=== PATIENT | female | born 1985 | race Caucasian/White ===

== ENCOUNTER 2020-02-29 16:23 | Outpatient (REF) | payer OTHER, SELFPAY | END 2020-02-29 16:24 | disposition home or self-care (01) | LOC: HO.LAB 16:23 | PROVIDERS: PCP Internal Medicine; Visit Provider Internal Medicine | DX: Z20.828 Contact with and (suspected) exposure to other viral communicable diseases (principal) | CPT/HCPCS: U0003 ==

== ENCOUNTER 2020-06-29 09:13 | Outpatient (REF) | payer OTHER, SELFPAY | END 2020-06-29 09:14 | disposition home or self-care (01) | LOC: HO.LAB 09:13 | PROVIDERS: Visit Provider Internal Medicine | DX: Z20.822 Contact with and (suspected) exposure to COVID-19 (principal) | CPT/HCPCS: 36415; C9803; U0003; U0005 ==

== ENCOUNTER 2020-07-05 08:41 | Outpatient (REF) | payer OTHER, SELFPAY | END 2020-07-05 08:42 | disposition home or self-care (01) | LOC: HO.LAB 08:41 | PROVIDERS: Visit Provider Internal Medicine | DX: Z20.822 Contact with and (suspected) exposure to COVID-19 (principal) | CPT/HCPCS: 36415; C9803; U0003; U0005 ==

== ENCOUNTER 2021-05-21 01:11 | Inpatient (IN) | payer OTHER, SELFPAY ==
[2021-05-21] VITALS (17 sets, daily range): BP systolic 109–206; BP diastolic 48–99; PULSE 75–133; RESP 13–20; TEMP 36.3–37.1; O2SAT 94–99; BMI 52.1
--- NOTE | 2021-05-21 | ECG_ITS ---
Test Reason : PAIN Blood Pressure : / mmHG Vent. Rate : 122 BPM Atrial Rate : 122 BPM P-R Int : 144 ms QRS Dur : 090 ms QT Int : 324 ms P-R-T Axes : 025 -12 053 degrees QTc Int : 461 ms Sinus tachycardia Otherwise normal ECG When compared to the previous EKG of Vent. rate has increased Referred By: Generic ED Physician Electronically Signed By:OSMAR GOMES MD
--- NOTE | ~2021-05-21 | XR_ITS ---
EXAMINATION: XR CHEST CLINICAL INFORMATION: Chest pain COMPARISON: 09/14/2012 TECHNIQUE: 2 views of the chest were obtained. FINDINGS: Cardiac leads overlie the chest. The lungs are well expanded. There is no focal consolidation, edema, or effusion. No pneumothorax. The cardiomediastinal silhouette is within normal limits. No acute osseous abnormality. XR/XR chest 2V IMPRESSION: Clear lungs.
--- NOTE | ~2021-05-21 | CT_ITS ---
EXAMINATION: CT ABDOMEN AND PELVIS WITH CONTRAST CLINICAL INFORMATION: Right upper quadrant pain. COMPARISON: None TECHNIQUE: Multidetector volumetric images were obtained from the superior aspect of the liver through the pubic symphysis following administration 85 mL of Omnipaque 350 intravenous contrast. Sagittal and coronal reformatted images were obtained on the technologist's workstation. Oral contrast: No This CT examination was performed using dose optimization techniques as appropriate, variously including the following: *Automated exposure control *Adjustment of mA and/or kV according to patient size (this includes techniques or standardized protocols for targeted exams where dose is matched to indication/reason for exam; i.e. extremities or head) *Use of iterative reconstruction technique DLP: 1288 mGy-cm FINDINGS: LUNG BASES: The visualized lung bases are unremarkable. LIVER, GALLBLADDER, AND BILIARY TREE: The liver is normal in size and shape with decreased attenuation. No focal hepatic lesion or biliary ductal dilatation is present. Mildly distended gallbladder with multiple stones inside the gallbladder lumen. There is gallbladder wall thickening and pericholecystic fluid noted. Stone in the region of the gallbladder neck. This is seen on series 3 image 28. PANCREAS: Unremarkable. SPLEEN: Unremarkable. ADRENAL GLANDS: Unremarkable. KIDNEYS AND URETERS: The kidneys are normal in size, shape, and attenuation. No hydronephrosis, hydroureter, or calculi seen. No perinephric stranding. BLADDER: Unremarkable. GASTROINTESTINAL TRACT: The stomach is unremarkable. Normal caliber small bowel. No obstruction. Normal appendix. No colonic wall thickening or inflammatory change. No free air or free fluid. ABDOMINAL WALL: No significant hernia is appreciated. LYMPH NODES: Normal. VASCULAR: Unremarkable. PELVIC VISCERA: The uterus and adnexa are unremarkable. OSSEOUS STRUCTURES: No acute or suspicious osseous abnormality. Mild degenerative change at L5-S1. CT/CT abdomen pelvis w con IMPRESSION: Cholelithiasis. Gallbladder wall thickening with inflammatory changes, suggestive of acute cholecystitis. Hepatic steatosis. Fleischner guidelines were followed.
[2021-05-21 01:35] LABS: Appearance Urine CLEAR; Color Urine STRAW; Glucose Urine UA NEG (NEG); Leukocyte Esterase Urine 1+ (NEG); Nitrite Urine NEG (NEG); PH 6.5 (5.0-8.0); UACC Culture Trigger YES; UPreg QC Valid YES; Urine Blood 1+ (NEG); Urine Ketones NEG (NEG); Urine Pregnancy NEGATIVE (NEGATIVE); Urine Protein NEG (NEG-TRACE)
[2021-05-21 01:40] LABS: Bacteria Urine 1+ /LPF; Squamous Epithelial Cell Urine 2+ /LPF
[2021-05-21 01:49] LABS: COVID-19 Test Negative (Negative); IDNOW Serial# 9DD0AD1C
[2021-05-21 01:49] LABS: MANUAL DIFF FLAG NO
[2021-05-21 01:50] LABS: Basophils Absolute Auto 0.1 X10*3/uL (0.0-0.2); Basophils Percent Auto 0.6 % (0-2); Eosinophils Absolute Auto 0.2 X10*3/uL (0.0-0.4); Eosinophils Percent Auto 1.6 % (0-4); Hematocrit 40.8 % (37.0-47.0); Hemoglobin 13.4 g/dl (12.0-16.0); Imm Gran Abs Auto 0.04 X10*3/uL (0.00-0.03); Imm Gran Pct Auto 0.3 % (0.0-0.4); Lymphocytes Absolute Auto 4.7 X10*3/uL (1.2-4.9); Lymphocytes Percent Auto 35.7 % (20-40); Mean Corpuscular HGB Conc 32.8 g/dl (31.0-35.0); Mean Corpuscular Hemoglobin 27.7 pg (27.0-33.0); Mean Corpuscular Volume 84.5 fL (80.0-98.0); Mean Platelet Volume 8.6 fL (9.4-12.3); Monocytes Absolute Auto 0.9 X10*3/uL (0.1-1.2); Neutrophils Absolute Auto 7.2 x10*3/uL (2.0-8.3); Neutrophils Percent Auto 54.8 % (45-73); Platelet Count 351 X10*3/uL (160-400); Red Blood Count 4.83 X10*6/uL (4.20-5.50); Red Cell Distribution Width 14.1 % (11.0-16.0); White Blood Count 13.1 X10*3/uL (4.8-10.8)
--- NOTE | 2021-05-21 02:03 | ED_ITS ---
HPI - General Adult General Chief complaint: Abdominal Pain Stated complaint: pain in ribs Time Seen by Provider: 05/21/21 01:17 Source: patient Mode of arrival: ambulatory History of Present Illness HPI narrative: 35-year-old female with history hypertension states that approximately 2230 last night she had a feeling of ?trapped air? located just below her right ribs but was able to go to sleep but then she awoke with significant epigastric pain and reports that the pain radiates laterally into her upper back. Patient denies any fever, chills, nausea, vomiting, diarrhea and has received COVID-19 vaccine. Related Data Home Medications Medication Instructions Recorded Confirmed acetaminophen 500 mg tablet 1,000 mg PO QID PRN 02/09/21 02/09/21 amlodipine 2.5 mg tablet 2.5 mg PO DAILY 02/09/21 02/09/21 hydroxyzine HCl 10 mg tablet 10 mg PO BEDTIME PRN 02/09/21 02/09/21 Previous Rx's Medication Instructions Recorded amoxicillin 875 mg-potassium 1 tab PO BID 5 Days #10 tab 02/09/21 clavulanate 125 mg tablet (Augmentin) Allergies Allergy/AdvReac Type Severity Reaction Status Date / Time No Known Allergies Allergy Verified 05/21/21 01:19 Review of Systems Review of Systems: Pertinent positives and negatives as stated in HPI 10 point review of systems is otherwise negative. PMFSH Past Medical History Source: nursing notes reviewed Medical History Hypertension Social History Social History Advance Directives: No Patient : No Physical Exam Vital Signs: Vital Signs: Last Vital Signs Temp 98.0 F 05/21/21 01:14 Pulse 110 H 05/21/21 02:49 Resp 18 05/21/21 02:49 BP 180/99 H 05/21/21 02:49 Pulse Ox 99 05/21/21 02:49 BMI result Body Mass Index 52.1 VITAL SIGNS: Reviewed. GENERAL: Obesity, Well developed, well nourished, in no acute distress. HEAD: Normocephalic/atraumatic EYES: PERRLA, EOMI OROPHARYNX: no oral lesions noted, posterior pharynx clear LUNGS: Normal breath sounds. No adventitious sounds or accessory muscle use. SpO2<99> CARDIOVASCULAR: Regular rate and rhythm without noted murmurs. ABDOMEN: Soft, tenderness in right upper quadrant without rebound, Granado's positive, also tenderness on palpation of epigastric, non-distended with bowel sounds. NEUROLOGIC: Alert and oriented x 4. Strength and sensation to light touch were grossly intact x 4. ED Bedside Ultrasound of RUQ +Gall stones Wall-5mm, trace pericholecystic fluid CBD: 3mm Granado's positive Course Course Course Narrative: 35-year-old female with history and clinical presentation sugg estive of cholecystitis/choledocholithiasis/pancreatitis after review of all investigations. In addition, patient is noted to have a UTI. 0330: Suspect infection Review of all investigations with findings suggestive of acute cholecystitis. Patient received antibiotics in this case was discussed with general surgery who accepts admission. Medical Decision Making Lab Data Result diagrams: 05/21/21 01:45 05/21/21 01:45 Labs: Lab Results 05/21/21 05/21/21 05/21/21 Range/Units 01:28 01:28 01:28 WBC (4.8-10.8) X10*3/uL RBC (4.20-5.50) X10*6/uL Hgb (12.0-16.0) g/dl Hct (37.0-47.0) % MCV (80.0-98.0) fL MCH (27.0-33.0) pg MCHC (31.0-35.0) g/dl RDW (11.0-16.0) % Plt Count (160-400) X10*3/uL MPV (9.4-12.3) fL Immature Gran % (Auto) (0.0-0.4) % Neut % (Auto) (45-73) % Lymph % (Auto) (20-40) % Mcdonough % (Auto) (2-11) % Eos % (Auto) (0-4) % Baso % (Auto) (0-2) % Lymph # (Auto) (1.2-4.9) X10*3/uL [place]cd[place]ough # (Auto) (0.1-1.2) X10*3/uL Eos # (Auto) (0.0-0.4) X10*3/uL Baso # (Auto) (0.0-0.2) X10*3/uL Abs Immat Gran (auto) (0.00-0.03) X10*3/uL Absolute Neuts (auto) (2.0-8.3) x10*3/uL Absolute Nucleated RBC (0.0-0.012) X10*3/uL Nucleated RBC % (auto) (0.0-0.2) /100WBC Sodium (135-145) mmol/L Potassium (3.3-5.1) mmol/L Chloride (96-108) mmol/L Carbon Dioxide (22-29) mmol/L Anion Gap (12-20) BUN (9-16) mg/dL Creatinine (0.5-1.4) mg/dL Estim Creat Clear Calc Estimated GFR Random Glucose (60-115) mg/dL Calcium (8.4-10.2) mg/dL Total Bilirubin (0.0-1.0) mg/dL AST (5-31) U/L ALT (0-31) U/L Alkaline Phosphatase (39-117) U/L Troponin I High Sens (<3.5-17.0) ng/L Total Protein (6.5-8.0) g/dL Albumin (3.5-5.0) g/dL Lipase (8-78) U/L Urine Color STRAW Urine Appearance CLEAR Urine pH 6.5 (5.0-8.0) Ur Specific [place] 1.010 (1.005-1.025) Urine Protein NEG (NEG-TRACE) MG/DL Urine Glucose (UA) NEG (NEG) MG/DL Urine Ketones NEG (NEG) MG/DL Urine Blood 1+ H (NEG) Urine Nitrite NEG (NEG) Ur Leukocyte Esterase 1+ H (NEG) Urine RBC 1-4 (0) /HPF Urine WBC 10-14 H (0-4) /HPF Ur Squamous Epith Cells 2+ /LPF Urine Bacteria 1+ /LPF Urine Test NEGATIVE (NEGATIVE) COVID-19 (XIOMY) Negative (Negative) COVID-19 Clin Com See Note 05/21/21 05/21/21 05/21/21 Range/Units 01:45 01:45 01:45 WBC 13.1 H (4.8-10.8) X10*3/uL RBC 4.83 (4.20-5.50) X10*6/uL Hgb 13.4 (12.0-16.0) g/dl Hct 40.8 (37.0-47.0) % MCV 84.5 (80.0-98.0) fL MCH 27.7 (27.0-33.0) pg MCHC 32.8 (31.0-35.0) g/dl RDW 14.1 (11.0-16.0) % Plt Count 351 (160-400) X10*3/uL MPV 8.6 L (9.4-12.3) fL Immature Gran % (Auto) 0.3 (0.0-0.4) % Neut % (Auto) 54.8 (45-73) % Lymph % (Auto) 35.7 (20-40) % Mcd[place]ough % (Auto) 7.0 (2-11) % Eos % (Auto) 1.6 (0-4) % Baso % (Auto) 0.6 (0-2) % Lymph # (Auto) 4.7 (1.2-4.9) X10*3/uL [place] # (Auto) 0.9 (0.1-1.2) X10*3/uL Eos # (Auto) 0.2 (0.0-0.4) X10*3/uL Baso # (Auto) 0.1 (0.0-0.2) X10*3/uL Abs Immat Gran (auto) 0.04 H (0.00-0.03) X10*3/uL Absolute Neuts (auto) 7.2 (2.0-8.3) x10*3/uL Absolute Nucleated RBC 0.000 (0.0-0.012) X10*3/uL Nucleated RBC % (auto) 0.0 (0.0-0.2) /100WBC Sodium 139 (135-145) mmol/L Potassium 3.7 (3.3-5.1) mmol/L Chloride 105 (96-108) mmol/L Carbon Dioxide 24 (22-29) mmol/L Anion Gap 14 (12-20) BUN 12 (9-16) mg/dL Creatinine 0.81 (0.5-1.4) mg/dL Estim Creat Clear Calc 126.3 Estimated GFR > 60 Random Glucose 146 H (60-115) mg/dL Calcium 9.5 (8.4-10.2) mg/dL Total Bilirubin 0.7 (0.0-1.0) mg/dL AST 19 (5-31) U/L ALT 28 (0-31) U/L Alkaline Phosphatase 132 H (39-117) U/L Troponin I High Sens < 3.5 (<3.5-17.0) ng/L Total Protein 7.3 (6.5-8.0) g/dL Albumin 4.0 (3.5-5.0) g/dL Lipase 12 (8-78) U/L Urine Color Urine Appearance Urine pH (5.0-8.0) Ur Specific [place] (1.005-1.025) Urine Protein (NEG-TRACE) MG/DL Urine Glucose (UA) (NEG) MG/DL Urine Ketones (NEG) MG/DL Urine Blood (NEG) Urine Nitrite (NEG) Ur Leukocyte Esterase (NEG) Urine RBC (0) /HPF Urine WBC (0-4) /HPF Ur Squamous Epith Cells /LPF Urine Bacteria /LPF Urine Test (NEGATIVE) COVID-19 (XIOMY) (Negative) COVID-19 Clin Com ECG Data Attestation: I personally reviewed and interpreted this ECG as follows: Prior ECG tracings: not available for review Interpretation: Sinus tachycardia, HR-122, no STEMI, OR/QRS/QTC are within nor mal limits. Discharge Plan Discharge Clinical Impression: Acute cholecystitis, Hypertension Patient Disposition: Admitted As Inpatient Prescriptions: No Action acetaminophen 500 mg tablet 1,000 mg PO QID PRNRF: 0 amlodipine 2.5 mg tablet 2.5 mg PO DAILY RF: 0 hydroxyzine HCl 10 mg tablet 10 mg PO BEDTIME PRNRF: 0 amoxicillin-pot clavulanate [Augmentin] 875-125 mg tablet 1 tab PO BID 5 Days Qty: 10 RF: 0
[2021-05-21 02:09] LABS: Troponin-I High Sensitivity < 3.5 ng/L (<3.5-17.0)
[2021-05-21 02:11] LABS: Alanine Aminotransferase 28 U/L (0-31); Alkaline Phosphatase 132 U/L (39-117); Anion Gap 14 (12-20); Aspartate Amino Transferase 19 U/L (5-31); Bilirubin Total 0.7 mg/dL (0.0-1.0); Blood Urea Nitrogen 12 mg/dL (9-16); Calcium 9.5 mg/dL (8.4-10.2); Carbon Dioxide 24 mmol/L (22-29); Chloride 105 mmol/L (96-108); Creatinine Clr Calc Pharmacy 126.3; Estimated Glomerular Filt Rate > 60; Glucose Random 146 mg/dL (60-115); Potassium 3.7 mmol/L (3.3-5.1); Sodium 139 mmol/L (135-145); Total Protein 7.3 g/dL (6.5-8.0)
[2021-05-21 02:18] LABS: Lipase 12 U/L (8-78)
[2021-05-21] MEDS: Acetaminophen 325 MG TABLET 975 MG PO (03:16)
[2021-05-21] MEDS: amLODIPine Besylate 5 MG TABLET PO (03:23)
[2021-05-21] MEDS: Ketorolac Tromethamine 30 MG/ML VIAL 15 MG IVPUSH (03:23)
[2021-05-21] MEDS: Piperacillin Sodium/Tazobactam 3.375 GM in 0.9 % Sodium Chloride 50 ML IV ×2 (04:55→12:18)
[2021-05-21] MEDS: HYDROmorphone HCl 0.5 MG/0.5 ML SYRINGE 0.25 MG IVPUSH (04:56)
--- NOTE | 2021-05-21 07:50 | PC.NURSE ---
took over care of this pt at 0700.
--- NOTE | 2021-05-21 08:54 | PHA.MEDREC ---
Pharmacy Consult ? Medication Reconciliation Pharmacy has completed the medication reconciliation. There are no remarkable issues for provider's attention. Ekaterina Oconnell, EugenioD
--- NOTE | 2021-05-21 10:11 | PM.HPGS ---
History of Present Illness History of Present Illness Date of Service: 05/21/21 <Alaina Ruiz PA-C - Last Filed: 05/21/21 10:22> 05/21/21 <Stanford Solo MD - Last Filed: 05/21/21 11:56> Chief complaint: cholecystitis <Alaina Ruiz PA-C - Last Filed: 05/21/21 10:22> Narrative: Davy Mcqueen is a 35 year old female who presented to the ED with complaints of RUQ abd pain. She reports last evening she developed discomfort in the RUQ that felt like trapped air under her ribs. She went to bed however the pain worsened and spread to the epigastric area. She found no alleviating factors. She took tums with no relief. She therefore decided to seek evaluation in the ED. She reports multiple prior episodes of pain that resolved on their own and were not as severe. These occasionally began following food ingestion. She denies nausea, vomiting, fevers or chills at home. Work up in the ED included a CT scan which showed mildly distended gallbladder with multiple stones inside the gallbladder lumen with wall thickening and pericholecystic fluid noted. She also had a leukocytosis of 13.1. LFTs nml. This morning, she feels better with decreased pain. <Alaina Ruiz PA-C - Last Filed: 05/21/21 10:22> Review of Systems Constitutional: Constitutional: Denies chills, Denies fever(s), Denies poor appetite and Denies weakness <Alaina Ruiz PA-C - Last Filed: 05/21/21 10:22> ENT: Denies dizziness <Alaina Ruiz PA-C - Last Filed: 05/21/21 10:22> Cardiovascular: Cardiovascular: Denies chest pain, Denies palpitations and Denies dyspnea <JAZZ Alan Last Filed: 05/21/21 10:22> Respiratory: Respiratory: Denies cough and Denies dyspnea <JAZZ Alan Last Filed: 05/21/21 10:22> Gastrointestinal: Gastrointestinal: Reports as per HPI <JAZZ Alan Last Filed: 05/21/21 10:22> Genitourinary: Genitourinary: Denies hematuria and Denies dysuria <Alaina Ruiz PA-C - Last Filed: 05/21/21 10:22> Integumentary/Breasts: Skin/Breast: Denies rash and Denies jaundice <Alaina Ruiz PA-C - Last Filed: 05/21/21 10:22> Neurologic: Denies dizziness and Denies weakness <Alaina Ruiz PA-C - Last Filed: 05/21/21 10:22> Endocrine: Endocrine: Denies palpitations <Alaina Ruiz PA-C - Last Filed: 05/21/21 10:22> COUNTS INCLUDE 234 BEDS AT THE [facility] Past Medical History Medical History: Medical History (Updated 05/21/21 @ 10:16 by Stanford Solo MD) Hypertension Morbid obesity <Alaina Ruiz PA-C - Last Filed: 05/21/21 10:22> Surgical History Surgical History: Surgical History (Updated 05/21/21 @ 10:17 by Alaina Ruiz PA-C) History of salpingectomy <Alaina Ruiz PA-C - Last Filed: 05/21/21 10:22> Social History Social History: Social History Advance Directives: No Patient : No <Alaina Ruiz PA-C - Last Filed: 05/21/21 10:22> Meds Allergies/Adverse reactions: Allergies Allergy/AdvReac Type Severity Reaction Status Date / Time No Known Allergies Allergy Verified 05/21/21 01:19 <Alaina Ruiz PA-C - Last Filed: 05/21/21 10:22> Active Medications: Current Medications Enoxaparin Sodium (Enoxaparin Sodium 40 Mg/0.4 Ml Syringe) 40 mg SUBCUT Q24H JOLLY Sodium Chloride () 1,000 mls @ 100 mls/hr IVCONT .Q10H JOLLY Piperacillin Sod/Tazobactam (Sod 3.375 gm/ Sodium Chloride) 50 mls @ 100 mls/hr IV Q6H JOLLY Morphine Sulfate (Morphine Sulfate 4 Mg/Ml Cartridge) 4 mg IVPUSH Q4H PRN; Protocol PRN Reason: Pain, Severe (Pain Scale 7-10) Ondansetron HCl (Ondansetron Hcl 4 Mg/2 Ml Vial) 4 mg IVPUSH Q8H PRN PRN Reason: Nausea and Vomiting Pharmacy Consult (Consult Rx Perform Med Rec) 1 each MISCELLANE ONCE PRN PRN Reason: Consult order Sodium Chloride (0.9 % Sodium Chloride Flush 3 Ml Syringe) 3 ml IVFLUSH QSHIFT [facility] <JAZZ Alan Last Filed: 05/21/21 10:22> Home medications: Home Medications Medication Instructions Recorded Confirmed Last Taken Type hydroxyzine HCl 10 mg tablet 10 mg PO BEDTIME PRN 02/09/21 05/21/21 Unknown History amlodipine 5 mg tablet 1 tab PO DAILY 05/21/21 05/21/21 05/20/21 History norethindrone (contraceptive) 0.35 1 tab PO DAILY 05/21/21 05/21/21 05/20/21 History mg tablet <JAZZ Alan Last Filed: 05/21/21 10:22> Physical Exam Vital Signs: Vital Signs: Last Vital Signs Temp 98.0 F 05/21/21 01:14 Pulse 85 05/21/21 06:59 Resp 13 05/21/21 06:59 BP 135/60 05/21/21 06:59 Pulse Ox 98 05/21/21 06:59 BMI result Body Mass Index 52.1 <JAZZ Alan Last Filed: 05/21/21 10:22> Const: General: comfortable, no acute distress and alert <JAZZ Alan Last Filed: 05/21/21 10:22> Orientation/consciousness: patient oriented x3 <JAZZ Alan Last Filed: 05/21/21 10:22> Eyes: Sclerae: sclerae normal <JAZZ Alan Last Filed: 05/21/21 10:22> Resp: Effort & Inspection: normal respiratory effort <JAZZ Alan Last Filed: 05/21/21 10:22> Cardio: Rate: regular rate <JAZZ Alan Last Filed: 05/21/21 10:22> GI: Inspection: No distended <Alainanery AnanddeauJAZZ Solomon Last Filed: 05/21/21 10:22> Palpation (GI): Soft to palpation, Tenderness to palpation present (GI) in the RUQ; Negative for Granado's sign negative, no guarding and not rigid <Alaina Ruiz PA-C Solomon Last Filed: 05/21/21 10:22> Percussion: Yes normal to percussion <Alaina JAZZ Ruiz Solomon Last Filed: 05/21/21 10:22> Skin: General skin exam: no rashes or lesions noted and no jaundice <Alaina Ruiz PA-C Solomon Last Filed: 05/21/21 10:22> Neuro: General: patient oriented x3 <Alaina Ruiz PA-C Solomon Last Filed: 05/21/21 10:22> Extrem: General: No no clubbing, cyanosis or edema <Alaina Ruiz PA-C Solomon Last Filed: 05/21/21 10:22> Results Results Labs: Short CBC 05/21/21 Range/Units 01:45 WBC 13.1 H (4.8-10.8) X10*3/uL Hgb 13.4 (12.0-16.0) g/dl Hct 40.8 (37.0-47.0) % Plt Count 351 (160-400) X10*3/uL BMP 05/21/21 01:45 Sodium 139 Potassium 3.7 Chloride 105 Carbon Dioxide 24 BUN 12 Creatinine 0.81 Calcium 9.5 Liver Function 05/21/21 Range/Units 01:45 Total Bilirubin 0.7 (0.0-1.0) mg/dL AST 19 (5-31) U/L ALT 28 (0-31) U/L Alkaline Phosphatase 132 H (39-117) U/L Albumin 4.0 (3.5-5.0) g/dL Urine 05/21/21 05/21/21 Range/Units 01:28 01:28 Urine Color STRAW Urine Appearance CLEAR Urine pH 6.5 (5.0-8.0) Ur Specific [place] 1.010 (1.005-1.025) Urine Protein NEG (NEG-TRACE) MG/DL Urine Glucose (UA) NEG (NEG) MG/DL Urine Test NEGATIVE (NEGATIVE) <Alaina Ruiz PA-C - Last Filed: 05/21/21 10:22> Assessment and Plan (1) Acute cholecystitis: Status: Acute <Alaina Ruiz PA-C - Last Filed: 05/21/21 10:22> She had an episode of pain on the right upper quadrant which she describes as severe last night. She is much better this morning. Her imaging study with her CAT scan has been reviewed and this suggest acute cholecystitis. I had a long discussion with her about the option of proceeding with laparoscopic cholecystectomy with possible open cholecystectomy. I did explain to her the risks including but not limited to bleeding, infection, injury to bowel, injury to the liver and the bile duct, cystic duct leak, bile leak, and stones, as well as the benefits and alternatives. In view of her severe pain last night, she says she wants to proceed with this surgery. I drained this as well to her through [employer] you over the phone at [phone] <Stanford Solo MD - Last Filed: 05/21/21 11:56> 35 year old female who presented with RUQ pain with RUQ tenderness, leukocytosis and imaging with gallstones, GB wall thickening and pericholecystic fluid. Clinical picture consistent with acute cholecystitis. Treatment options were discussed with her including observation and IV abx therapy versus proceeding with laparoscopic cholecystectomy possible open. Technique of the procedure, risks and benefits were discussed with the patient including bleeding, infection, injury to surrounding structures like liver, bile ducts, bowel, vasculature. She actually feels improved currently but wants to proceed with laparoscopic cholecystectomy in view of her previous episodes. She will be added onto the OR schedule for today. <Alaina Ruiz PA-C - Last Filed: 05/21/21 10:22> Quality Stroke Does the patient have a stroke diagnosis?: No <Alaina Ruiz PA-C - Last Filed: 05/21/21 10:22> VTE Prior VTE?: No <Alaina Ruiz PA-C - Last Filed: 05/21/21 10:22> VTE Risk Level:: Surgical - low <Alaina Ruiz PA-C - Last Filed: 05/21/21 10:22> VTE Device Contraindication: N/A - Device Ordered <Alaina Ruiz PA-C - Last Filed: 05/21/21 10:22> VTE Drug Contraindication: N/A - Med Ordered <Alaina Ruiz PA-C - Last Filed: 05/21/21 10:22> Procedures Date of Service Date of Service: 05/21/21 <Alaina Ruiz PA-C - Last Filed: 05/21/21 10:22>
--- NOTE | 2021-05-21 10:15 | P.HPGS_ITS ---
History of Present Illness History of Present Illness Date of Service: 05/21/21 Chief complaint: cholecystitis Narrative: Davy Mcqueen is a 35 year old female who came to the emergency room last night because of abdominal pain. She says that she had some mild pain on the right upper quadrant when she went to bed last night. However, she woke up at around midnight last night because of the severe pain. She then went to the emergency room. She says that she was nauseous although denies any vomiting. She says that she really did not have any similar episodes of pain in the past. She says that she feels she is in good health although is morbidly obese and has hypertension. She currently states that her pain has improved significantly. Review of Systems Constitutional: Constitutional: Denies chills and Denies fever(s) Cardiovascular: Cardiovascular: Denies chest pain, Denies dyspnea and Denies dyspnea on exertion Respiratory: Respiratory: Denies cough, Denies dyspnea and Denies dyspnea on exertion Gastrointestinal: Gastrointestinal: Denies hematochezia and Denies change in bowel habits Genitourinary: Genitourinary: Denies hematuria Musculoskeletal: Musculoskeletal: Denies back pain and Denies limited range of motion Neurologic: Denies focal weakness and Denies convulsions Psychiatric: Psychiatric: Denies depression and Denies mood swings PMF Past Medical History Medical History (Updated 05/21/21 @ 10:16 by Stanford Solo MD) Hypertension Morbid obesity Surgical History Surgical History (Updated 05/21/21 @ 10:17 by Alaina Ruiz PA-C) History of salpingectomy Social History Social History Advance Directives: No Patient : No Meds Allergies Allergy/AdvReac Type Severity Reaction Status Date / Time No Known Allergies Allergy Verified 05/21/21 01:19 Active Medications: Current Medications Enoxaparin Sodium (Enoxaparin Sodium 40 Mg/0.4 Ml Syringe) 40 mg SUBCUT Q24H JOLLY Sodium Chloride () 1,000 mls @ 100 mls/hr IVCONT .Q10H JOLLY Piperacillin Sod/Tazobactam (Sod 3.375 gm/ Sodium Chloride) 50 mls @ 100 mls/hr IV Q6H JOLLY Morphine Sulfate (Morphine Sulfate 4 Mg/Ml Cartridge) 4 mg IVPUSH Q4H PRN; Protocol PRN Reason: Pain, Severe (Pain Scale 7-10) Ondansetron HCl (Ondansetron Hcl 4 Mg/2 Ml Vial) 4 mg IVPUSH Q8H PRN PRN Reason: Nausea and Vomiting Pharmacy Consult (Consult Rx Perform Med Rec) 1 each MISCELLANE ONCE PRN PRN Reason: Consult order Sodium Chloride (0.9 % Sodium Chloride Flush 3 Ml Syringe) [facility] Medication Instructions Recorded Confirmed Last Taken Type hydroxyzine HCl 10 mg tablet 10 mg PO BEDTIME PRN 02/09/21 05/21/21 Unknown H istory amlodipine 5 mg tablet 1 tab PO DAILY 05/21/21 05/21/21 05/20/21 History norethindrone (contraceptive) 0.35 1 tab PO DAILY 05/21/21 05/21/21 05/20/21 History mg tablet Physical Exam Vital Signs: Vital Signs: Last Vital Signs Temp 98.0 F 05/21/21 01:14 Pulse 85 05/21/21 06:59 Resp 13 05/21/21 06:59 BP 135/60 05/21/21 06:59 Pulse Ox 98 05/21/21 06:59 BMI result Body Mass Index 52.1 Const: Other: Appears morbidly obese Results Results Labs: Short CBC 05/21/21 Range/Units 01:45 WBC 13.1 H (4.8-10.8) X10*3/uL Hgb 13.4 (12.0-16.0) g/dl Hct 40.8 (37.0-47.0) % Plt Count 351 (160-400) X10*3/uL BMP 05/21/21 01:45 Sodium 139 Potassium 3.7 Chloride 105 Carbon Dioxide 24 BUN 12 Creatinine 0.81 Calcium 9.5 Liver Function 05/21/21 Range/Units 01:45 Total Bilirubin 0.7 (0.0-1.0) mg/dL AST 19 (5-31) U/L ALT 28 (0-31) U/L Alkaline Phosphatase 132 H (39-117) U/L Albumin 4.0 (3.5-5.0) g/dL Urine 05/21/21 05/21/21 Range/Units 01:28 01:28 Urine Color STRAW Urine Appearance CLEAR Urine pH 6.5 (5.0-8.0) Ur Specific [place] 1.010 (1.005-1.025) Urine Protein NEG (NEG-TRACE) MG/DL Urine Glucose (UA) NEG (NEG) MG/DL Urine Test NEGATIVE (NEGATIVE) Abdomen CT scan report/results: report reviewed and image reviewed CT scan - pelvis: report reviewed and image reviewed Quality VTE VTE Risk Level:: Surgical - low VTE Device Contraindication: N/A - Device Ordered VTE Drug Contraindication: N/A - Med Ordered
[2021-05-21] MEDS: Sodium Chloride 0.45 % 1,000 ML 100 ML IVCONT ×2 (10:51→17:18)
--- NOTE | 2021-05-21 11:47 | HO.ANESPROP2 ---
[facility] Active Problems Active Problems: All Active Problems (Updated 05/21/21 @ 10:16 by Stanford Solo MD) Morbid obesity (Acute) Left otitis media (Acute) Acute cholecystitis (Acute) Hypertension (Acute) Past Medical History Medical History Hypertension Morbid obesity Surgical History Surgical History History of salpingectomy History of Problems with Anesthesia: No Social History Social History Patient Tobacco Use Status: Never used Tobacco Use of substances other than those prescribed or required for medical reasons: No Are you DNR?: No Advance Directives: No Patient : No Meds Allergies Allergy/AdvReac Type Severity Reaction Status Date / Time No Known Allergies Allergy Verified 05/21/21 12:55 Active Medications: Current Medications Enoxaparin Sodium (Enoxaparin Sodium 40 Mg/0.4 Ml Syringe) 40 mg SUBCUT Q24H [facility] Last Admin: 05/21/21 10:51 Dose: Not Given Documented by: Sodium Chloride () 1,000 mls @ 100 mls/hr IVCONT .Q10H [facility] Last Admin: 05/21/21 10:51 Dose: 100 mls/hr Documented by: Piperacillin Sod/Tazobactam (Sod 3.375 gm/ Sodium Chloride) 50 mls @ 100 mls/hr IV Q6H JOLLY Morphine Sulfate (Morphine Sulfate 4 Mg/Ml Cartridge) 4 mg IVPUSH Q4H PRN; Protocol PRN Reason: Pain, Severe (Pain Scale 7-10) Ondansetron HCl (Ondansetron Hcl 4 Mg/2 Ml Vial) 4 mg IVPUSH Q8H PRN PRN Reason: Nausea and Vomiting Pharmacy Consult (Consult Rx Perform Med Rec) 1 each MISCELLANE ONCE PRN PRN Reason: Consult order Sodium Chloride (0.9 % Sodium Chloride Flush 3 Ml Syringe) 3 ml IVFLUSH QSHIFT [facility] Last Admin: 05/21/21 10:51 Dose: Not Given Documented by: Home Medications Medication Instructions Recorded Confirmed Last Taken Type hydroxyzine HCl 10 mg tablet 10 mg PO BEDTIME PRN 02/09/21 05/21/21 Unknown History amlodipine 5 mg tablet 1 tab PO DAILY 05/21/21 05/21/21 05/20/21 History norethindrone (contraceptive) 0.35 1 tab PO DAILY 05/21/21 05/21/21 05/20/21 History mg tablet Exam Exam Date and Time: May 21, 2021 1147 Height,Weight and Vital Signs: Height 5 ft 2 in Weight 129.274 kg Last Vital Signs Temp 97.8 F 05/21/21 10:30 Pulse 99 05/21/21 10:30 Resp 16 05/21/21 10:30 BP 143/76 H 05/21/21 10:30 Pulse Ox 97 05/21/21 10:30 Pertinent Lab Results Pertinent Lab Results: Laboratory Tests 05/21/21 05/21/21 05/21/21 01:28 01:28 01:28 WBC RBC Hgb Hct MCV MCH MCHC RDW Plt Count MPV Immature Gran % (Auto) Neut % (Auto) Lymph % (Auto) [place] % (Auto) Eos % (Auto) Baso % (Auto) Lymph # (Auto) [place] # (Auto) Eos # (Auto) Baso # (Auto) Abs Immat Gran (auto) Absolute Neuts (auto) Absolute Nucleated RBC Nucleated RBC % (auto) Sodium Potassium Chloride Carbon Dioxide Anion Gap BUN Creatinine Estim Creat Clear Calc Estimated GFR Random Glucose Calcium Total Bilirubin AST ALT Alkaline Phosphatase Troponin I High Sens Total Protein Albumin Lipase Urine Color STRAW Urine Appearance CLEAR Urine pH 6.5 Ur Specific [place] 1.010 Urine Protein NEG Urine Glucose (UA) NEG Urine Ketones NEG Urine Blood 1+ H Urine Nitrite NEG Ur Leukocyte Esterase 1+ H Urine RBC 1-4 Urine WBC 10-14 H Ur Squamous Epith Cells 2+ Urine Bacteria 1+ Urine Test NEGATIVE COVID-19 (XIOMY) Negative COVID-19 Clin Com See Note 05/21/21 05/21/21 05/21/21 01:45 01:45 01:45 WBC 13.1 H RBC 4.83 Hgb 13.4 Hct 40.8 MCV 84.5 MCH 27.7 MCHC 32.8 RDW 14.1 Plt Count 351 MPV 8.6 L Immature Gran % (Auto) 0.3 Neut % (Auto) 54.8 Lymph % (Auto) 35.7 [place] % (Auto) 7.0 Eos % (Auto) 1.6 Baso % (Auto) 0.6 Lymph # (Auto) 4.7 [place] # (Auto) 0.9 Eos # (Auto) 0.2 Baso # (Auto) 0.1 Abs Immat Gran (auto) 0.04 H Absolute Neuts (auto) 7.2 Absolute Nucleated RBC 0.000 Nucleated RBC % (auto) 0.0 Sodium 139 Potassium 3.7 Chloride 105 Carbon Dioxide 24 Anion Gap 14 BUN 12 Creatinine 0.81 Estim Creat Clear Calc 126.3 Estimated GFR > 60 Random Glucose 146 H Calcium 9.5 Total Bilirubin 0.7 AST 19 ALT 28 Alkaline Phosphatase 132 H Troponin I High Sens < 3.5 Total Protein 7.3 Albumin 4.0 Lipase 12 Urine Color Urine Appearance Urine pH Ur Specific [place] Urine Protein Urine Glucose (UA) Urine Ketones Urine Blood Urine Nitrite Ur Leukocyte Esterase Urine RBC Urine WBC Ur Squamous Epith Cells Urine Bacteria Urine Test COVID-19 (XIOMY) COVID-19 Clin Com Airway Mallampati Class: II TM Dist: >3cm Neck ROM: Full Loose/Missing/Broken Teeth: No Heart: RRR Lungs: CTA Assessment and Plan Assessment Anesthesia Assessment: Anesthesia Plan Discussed and Chart Reviewed Final Anesthetic Review History of Problems with Anesthesia: No NPO: Yes ASA Class: III Final Preanesthetic Review: Meds/Allgs Chart Reviewed, Consent Obtained/Reviewed and Anes Risks/Benef Reviewed Patient Risk: Intermediate Procedure Risk: Intermediate Anesthetic Plan Anesthetic Plan: GA Disposition: Standard PACU
--- NOTE | 2021-05-21 12:09 | PC.NURSE ---
Pt A&Ox3, no pain at this time, Aware of plan for OR at some point today. Oriented to the unit, Ambulatory with no assistance, call galvan within reach. WIll cotnineut o monitor.
--- NOTE | 2021-05-21 12:52 | PC.NURSE ---
Pt to OR at this time.
--- NOTE | 2021-05-21 14:31 | MHC.CM.PN ---
CM ATTEMPTED TO MEET WITH PT WHO WAS OFF UNIT CM TO REVISIT
--- NOTE | 2021-05-21 14:58 | P.OP_ITS ---
Operative Note Operative Note Date of Service: 05/21/21 Narrative: Preop diagnosis: Acute calculous cholecystitis Postop diagnosis: Acute calculous cholecystitis Procedure: Laparoscopic cholecystectomy Surgeon: Stanford Solo MD volleyball assistant coach: CORRY Ruiz The patient is a 35 year female who came to the emergency room last night because of right upper quadrant pain. Her CAT scan was consistent with acute cholecystitis. She was tender in right upper quadrant. She understood the technique of laparoscopic cholecystectomy as well as the risks, benefits, and alternatives and she wanted to proceed. She was brought to the operating room placed supine on table under general anesthesia via endotracheal tube. The abdomen is prepped draped usual sterile fashion. A surgical time-out was done. The patient received Cefotan 2 g IV preoperatively. I made a short supraumbilical incision using blade 15 and this carried down through the full-thickness of the skin and subcutaneous fat. We had to go through a very thick amount of subcutaneous fat in view of her morbid obesity until we were able to visualize the fascia. The fascia was grasped with Adelfo clamps. The fascia was incised. The peritoneum was entered. Through this incision a Moi port was introduced. Pneumoperitoneum was introduced to a pressure of 10 mm hg. From here on the rest of the procedure was done under vision with the laparoscope. With laparoscopic visualization, I proceeded to put a 5/12 mm port in the epigastric area below the subcostal margin. 5 mm port introduced a small incision below the subcostal margin along the anterior axillary line and the midclavicular line. Graspers were placed through these working port. The patient was placed in head-up and [id number] position. I was able to apply a grasper at the the gallbladder to retract this cephalad. By doing so, I wass able to view this and this appeared to be markedly distended congested and acutely inflamed. There was note of a lot omentum that was adherent to the anterior wall so I had to do a lot of gentle dissection with the [place] dissector to carefully strip the anterior wall of omentum. I was eventually able to expose the entire anterior wall. I was able to apply another grasper towards the pouch of the gallbladder and this was used to retract the gallbladder laterally. At this point therefore the gallbladder was being retracted in a cephalad and lateral fashion to put the approximate area of the cystic duct on stretch. Again there was still note of a lot of indurated fatty tissue surrounding the neck of the gallbladder so we had to do a lot of gentle dissection with the [place] dissector to free this up. Eventually, I was able to see the cystic duct. I was able to dissect this With this dissection, I achieved a critical view of the hepato cystic triangle. The cystic artery was also seen running alongside and posterior to the cystic duct. The lymph node of of [place] was also seen along the inferior edge of the gallbladder . There were no other tubular structures that could be seen in this area I continued to define the cystic duct until was able to clearly confirm its confluence with the neck of the gallbladder. I applied clips on the cystic duct with 2 clips being applied distally. The cystic duct was transected between clips with Endo scissors . I continued to dissect the cystic artery as well to define this. I applied clips on this and this was transected between clips with Endo scissors. I retracted the gallbladder away from the liver bed. I divided across the hilum with electrocautery spatula until I reached the interface of the gallbladder wall and the liver bed. I dissected the lymph node of [place] down to separate this from the gallbladder . By doing so was able to expose the entire interface of the gallbladder wall the liver bed. I used electrocautery spatula to cauterized the peritoneum. I then proceeded to do combination of blunt dissection with the tip of the spatula and electrocautery to gently separate the gallbladder wall from the liver bed. We proceeded with this manner of dissection throughout the liver bed all the way to the fundus. This was done until the entire gallbladder was completely from the liver bed. The gallbladder was retrieved through an endobag through the umbilical incision. I reinserted all ports and re-insufflated . I gently irrigated the area of dissection and suction out the irrigant fluid . I observed the subhepatic space. There was no evidence of any bleeding or any bile leak. I observed all 4 quadrants. There was no other evidence of any bowel pathology or any injury I reinspected the subhepatic space. Once hemostasis was ensured, proceeded to then desufflated the port sites. The ports were removed under vision with the laparoscope. The umbilical port was therefore removed last. The fascia of the umbilical incision was closed with [id number] Dexon 0 stitch. Skin closure was achieved on all incisions using Dexon 4-0 subcuticular running sutures. Steri-Strips and dressings were applied All incisions were infiltrated with Marcaine 0.5% for postop analgesia. The procedure was then completed The patient tolerated the procedure well. No immediate complications were noted. Initial and final final counts of sponges and instruments were correct. Estimated blood loss about 75 cc . The patient was extubated without difficulty and transferred to the recovery room with stable vital signs.
--- NOTE | 2021-05-21 15:08 | PM.OP ---
Brief Operative Note Date of Service: 05/21/21 Pre-op diagnosis: acute cholecystitis Post-op diagnosis: same Procedure: laparoscopic cholecystectomy Implants: None Surgeon: ROBERTO PABLO MD Anesthesia: GETA Was an Cnc Mill Set Up Operator used for this Procedure?: Yes Cnc Mill Set Up Operator: Alaina Ruiz Estimated blood loss (mL): 20 Pathology: other (gallbladder) Condition: stable Disposition: PACU
[2021-05-21] MEDS: oxyCODONE HCl Immed Release 5 MG TABLET PO ×2 (15:50→23:18)
[2021-05-21] MEDS: Acetaminophen 325 MG TABLET 650 MG PO (15:50)
--- NOTE | 2021-05-21 16:48 | PM.EVENT ---
Event Note Date of Service: 05/21/21 Event Note: seen postop underwent lap fernando for acute cholecystitis has incisional pain stable VS continue pain mgt cassidy tejeda
[2021-05-21] MEDS: Morphine Sulfate 4 MG/ML CARTRIDGE IVPUSH (18:10)
[2021-05-22] MEDS: Sodium Chloride 0.45 % 1,000 ML 100 ML IVCONT (01:44)
[2021-05-22 03:53] VITALS: BP 135/77; PULSE 87; RESP 17; TEMP 36.8; O2SAT 94
[2021-05-22] MEDS: Enoxaparin Sodium 40 MG/0.4 ML SYRINGE SUBCUT (06:14)
[2021-05-22 07:33] VITALS: BP 139/73; PULSE 87; RESP 18; TEMP 36.4; O2SAT 95
--- NOTE | 2021-05-22 07:33 | P.PNGS_ITS ---
Subjective Subjective Date of Service: 05/22/21 <Alaina Ruiz PA-C - Last Filed: 05/22/21 07:36> 05/22/21 <Stanford Solo MD - Last Filed: 05/22/21 10:52> Interval history: Feels well this morning. Pain minimal and controlled. Tolerating solid diet. OOB without difficulty. <Alaina Ruiz PA-C - Last Filed: 05/22/21 07:36> Physical Exam Vital Signs: Vital Signs: Last Vital Signs Temp 98.2 F 05/22/21 03:53 Pulse 87 05/22/21 03:53 Resp 17 05/22/21 03:53 BP 135/77 05/22/21 03:53 Pulse Ox 94 05/22/21 03:53 BMI result Body Mass Index 52.1 <JAZZ Alan Last Filed: 05/22/21 07:36> Const: General: comfortable, no acute distress, well developed and alert <Alaina Ruiz PA-C - Last Filed: 05/22/21 07:36> Orientation/consciousness: patient oriented x3 <Alaina Ruiz PA-C - Last Filed: 05/22/21 07:36> GI: Inspection: No distended and Yes incision (dressings clean) <JAZZ Alan Last Filed: 05/22/21 07:36> Palpation (GI): Soft to palpation, Tenderness to palpation present (GI) (incisional, mild) and no guarding <Alaina Ruiz PA-C - Last Filed: 05/22/21 07:36> Skin: General skin exam: no rashes or lesions noted <Alaina Ruiz PA-C - Last Filed: 05/22/21 07:36> Neuro: General: patient oriented x3 <JAZZ Alan Last Filed: 05/22/21 07:36> Objective Data Active Medications Acetaminophen (Acetaminophen 325 Mg Tablet) 650 mg PO Q6H PRN PRN Reason: fever, pain Enoxaparin Sodium (Enoxaparin Sodium 40 Mg/0.4 Ml Syringe) 40 mg SUBCUT Q24H [facility] Last Admin: 05/22/21 06:14 Dose: 40 mg Documented by: CR Sodium Chloride () 1,000 mls @ 100 mls/hr IVCONT .Q10H [facility] Last Admin: 05/22/21 01:44 Dose: 100 mls/hr Documented by: CR Morphine Sulfate (Morphine Sulfate 4 Mg/Ml Cartridge) 4 mg IVPUSH Q4H PRN; Protocol PRN Reason: Pain, Severe (Pain Scale 7-10) Last Admin: 05/21/21 18:10 Dose: 4 mg Documented by: RAUL Ondansetron HCl (Ondansetron Hcl 4 Mg/2 Ml Vial) 4 mg IVPUSH Q8H PRN PRN Reason: Nausea and Vomiting Oxycodone HCl (Oxycodone Hcl Immed Release 5 Mg Tablet) 5 mg PO Q4H PRN PRN Reason: Pain, Moderate (Pain Scale 4-6 Last Admin: 05/21/21 23:18 Dose: 5 mg Documented by: CR Oxycodone HCl (Oxycodone Hcl Immed Release 5 Mg Tablet) 10 mg PO Q4H PRN PRN Reason: Pain, Severe (Pain Scale 7-10) Pharmacy Consult (Consult Rx Perform Med Rec) 1 each MISCELLANE ONCE PRN PRN Reason: Consult order Sodium Chloride (0.9 % Sodium Chloride Flush 3 Ml Syringe) 3 ml IVFLUSH QSHIFT [facility] Last Admin: 05/22/21 00:50 Dose: Not Given Documented by: CR Non-Admin Reason: IV Running <Alaina Ruiz PA-C - Last Filed: 05/22/21 07:36> Labs CBC & Chem 7: : 05/21/21 01:45 05/21/21 01:45 <JAZZ Alan Last Filed: 05/22/21 07:36> Procedures Date of Service Date of Service: 05/22/21 <JAZZ Alan Last Filed: 05/22/21 07:36> Progress Note: A&P Assessment and plan (1) Acute cholecystitis: Status: Acute <JAZZ Alan Last Filed: 05/22/21 07:36> (2) S/P laparoscopic cholecystectomy: Status: Acute <Alaina Ruiz PA-C - Last Filed: 05/22/21 07:36> Assessment and Plan: Says she had a good night Good pain control Tolerating diet She feels well overall Says she is ready to be discharged DC instructions given to patient Will see in the office for follow-up Seen and examined independently <Stanford Solo MD - Last Filed: 05/22/21 10: 52> Assessment and Plan: 35 year old female admitted with acute cholecystitis now POD #1 s/p lap fernando. She is doing well post op, comfortable and tolerating diet. VSS. Abd exam benign with appropriate post op tenderness, dressings intact. She feels ready for discharge. Stable for d/c today, f/u in office in 2 weeks. <Alaina Ruiz PA-C - Last Filed: 05/22/21 07:36> Fall Risk Details Current Medications: Current Medications Acetaminophen (Acetaminophen 325 Mg Tablet) 650 mg PO Q6H PRN PRN Reason: fever, pain Enoxaparin Sodium (Enoxaparin Sodium 40 Mg/0.4 Ml Syringe) 40 mg SUBCUT Q24H [facility] Last Admin: 05/22/21 06:14 Dose: 40 mg Documented by: Sodium Chloride () 1,000 mls @ 100 mls/hr IVCONT .Q10H [facility] Last Admin: 05/22/21 01:44 Dose: 100 mls/hr Documented by: Morphine Sulfate (Morphine Sulfate 4 Mg/Ml Cartridge) 4 mg IVPUSH Q4H PRN; Protocol PRN Reason: Pain, Severe (Pain Scale 7-10) Last Admin: 05/21/21 18:10 Dose: 4 mg Documented by: Ondansetron HCl (Ondansetron Hcl 4 Mg/2 Ml Vial) 4 mg IVPUSH Q8H PRN PRN Reason: Nausea and Vomiting Oxycodone HCl (Oxycodone Hcl Immed Release 5 Mg Tablet) 5 mg PO Q4H PRN PRN Reason: Pain, Moderate (Pain Scale 4-6 Last Admin: 05/21/21 23:18 Dose: 5 mg Documented by: Oxycodone HCl (Oxycodone Hcl Immed Release 5 Mg Tablet) 10 mg PO Q4H PRN PRN Reason: Pain, Severe (Pain Scale 7-10) Pharmacy Consult (Consult Rx Perform Med Rec) 1 each MISCELLANE ONCE PRN PRN Reason: Consult order Sodium Chloride (0.9 % Sodium Chloride Flush 3 Ml Syringe) [facility] Last Admin: 05/22/21 00:50 Dose: Not Given Documented by: <Alaina Ruiz PA-C - Last Filed: 05/22/21 07:36> Time Spent With Patient Time: Total time spent is greater than 50% in coordination of care (as d ocumented) at patient's floor/unit and/or counseling patient: <Alaina Ruiz PA-C - Last Filed: 05/22/21 07:36> Time with patient: 15 - 24 minutes <Alaina Ruiz PA-C - Last Filed: 05/22/21 07:36> Quality Stroke Does the patient have a stroke diagnosis?: No <Alaina Ruiz PA-C - Last Filed: 05/22/21 07:36> VTE Prior VTE?: No <Alaina Ruiz PA-C - Last Filed: 05/22/21 07:36> VTE Risk Level:: Surgical - low <Alaina Ruiz PA-C - Last Filed: 05/22/21 07:36> VTE Device Contraindication: N/A - Device Ordered <Alaina Ruiz PA-C - Last Filed: 05/22/21 07:36> VTE Drug Contraindication: N/A - Med Ordered <Alaina Ruiz PA-C - Last Filed: 05/22/21 07:36>
--- NOTE | 2021-05-22 08:38 | MHC.CM.PN ---
CM met with Patient at bedside. Patient lives in an apartment with her and 3 children. Patient has been medically cleared for dc to home today no services.
--- NOTE | 2021-05-22 10:39 | PM.DS ---
DS: Providers Provider Date of Service: 05/22/21 Date of admission: 05/21/21 05:09 Primary care physician: Andrey Guardado MD Attending physician on admission: Stanford Solo DS: Diagnosis Discharge Diagnosis (1) Acute cholecystitis: Status: Acute (2) S/P laparoscopic cholecystectomy: Status: Acute DS: Summary Hospital Course Hospital Course: BRIEF HPI: Davy Mcqueen is a 35 year old female who presented to the ED with complaints of RUQ abd pain. She reports last evening she developed discomfort in the RUQ that felt like trapped air under her ribs. She went to bed however the pain worsened and spread to the epigastric area. She found no alleviating factors. She took tums with no relief. She therefore decided to seek evaluation in the ED. She reports multiple prior episodes of pain that resolved on their own and were not as severe. These occasionally began following food ingestion. She denies nausea, vomiting, fevers or chills at home. Work up in the ED included a CT scan which showed mildly distended gallbladder with multiple stones inside the gallbladder lumen with wall thickening and pericholecystic fluid noted. She also had a leukocytosis of 13.1. LFTs nml. This morning, she feels better with decreased pain. HOSPITAL COURSE: She was admitted to the surgical service under Dr. Solo for further treatment of the acute cholecysitis. Treatment options were discussed and she elected to proceed with surgery. She was added onto the OR schedule for that day. She was kept NPO, on IVF and IV zosyn. On 05/21/21, a laparoscopic cholecystectomy was performed by Dr. Solo without complication. She tolerated the procedure well, completed routine recovery and was admitted for observation. She had an uncomplicated recovery course. On POD #1, she was doing well and was comfortable on PO analgesics. She was tolerating a solid diet. She was ambulating. Her abdomen was benign with clean dressings and appropriate post op tenderness. She felt ready for discharge. She was discharged to home on 05/22/21 in stable condition. She is to f/u in office with Dr. Solo in 2 weeks. Status at Discharge Functional status at discharge: independent ambulation Overall status at discharge: patient is progressing back to baseline Time Spent with Patient Time attestation: Total time spent providing and/or coordinating discharge services: Discharge coordination time: Less than 30 minutes Quality: Stroke Does the patient have a stroke diagnosis?: No Physical Exam Vital Signs: Vital Signs: Last Vital Signs Temp 97.5 F 05/22/21 07:33 Pulse 87 05/22/21 07:33 Resp 18 05/22/21 07:33 BP 139/73 05/22/21 07:33 Pulse Ox 95 05/22/21 07:33 BMI result Body Mass Index 52.1 Const: General: comfortable, no acute distress and well developed Orientation/consciousness: patient oriented x3 Resp: Effort & Inspection: normal respiratory effort GI: Inspection: No distended and Yes incision (dressings c/d/i) Palpation (GI): Soft to palpation, Tenderness to palpation present (GI) (mild, incisional) and no guarding Percussion: Yes normal to percussion Skin: General skin exam: no rashes or lesions noted Neuro: General: patient oriented x3 DS: Data Data Completed and Pending Pending studies at discharge: Pending at discharge 05/21/21 14:43 Surgical [PTH] Routine Discharge Plan Discharge Patient Disposition: Home, Self-Care Discharge Diagnosis: acute cholecystitis s/p laparoscopic cholecystectomy Referrals: Andrey Guardado MD [Primary Care Provider] - 1 Week Stanford Solo MD [Physician] - 1 Week Discharge Medications: New oxycodone 5 mg tablet 5 mg PO Q4H PRN (Reason: pain (scale score 7-10)) Qty: 24 RF: 0 Continued amlodipine 5 mg tablet 1 tab PO DAILY RF: 0 norethindrone (contraceptive) 0.35 mg tablet 1 tab PO DAILY RF: 0 hydroxyzine HCl 10 mg tablet 10 mg PO BEDTIME PRN (Reason: Anxiety) RF: 0 Discharge Orders: Discharge Order (Routine); Ordered 05/22/21 Ordered By: Alaina Ruiz Diet: low fat, low cholesterol Activity on Discharge: No heavy lifting Stand Alone Forms: Patient Portal Discharge page Activity Restrictions/Additional Instructions: If the incision area is tender, you may apply an ice pack for short intervals (No more than 20 minutes on, followed by at least 20 minutes off). Do not apply heat. Do not use creams, lotions, or topical antibiotics unless instructed to do so by your surgeon. These can cause infection or allergic reaction. Ok to shower 24 hours after your surgery. Remove bandaids in 2 days and replace. You have steri strips (small white cloth strips) covering your incision- these will fall off ~1 week. Follow up in office with Dr. Solo in 2 weeks. ([phone]) No heavy lifting (>10-20lbs)! Call Your Doctor If: -Your temperature exceeds 101.5? F -You experience excessive pain or swelling -You have an unexpected reaction to medication -You have excessive bleeding -You experience continued vomiting/nausea -Your incision begins to separate -Your incision shows signs of infection such as increased redness, swelling, excessive pain, drainage (light blood or clear fluid is normal) or heat Care Plan Goals: Return to baseline health and gradual return to activity following recovery period. Health Concerns: acute cholecystitis Plan of Treatment: s/p laparoscopic cholecystectomy 05/21/21 F/u in office with Dr. Solo in 2 weeks Assessment: Doing well post op.
--- NOTE | 2021-05-22 14:33 | HO.POSTANES ---
Post Anesthesia Evaluation Post Anesthesia Evaluation Vital Signs: Vital Signs Temp Pulse Resp BP Pulse Ox 05/22/21 07:33 97.5 F 87 18 139/73 95 05/22/21 03:53 98.2 F 87 17 135/77 94 Anesthesia: General Endotracheal-GETA Mental Status: Awake Pain Control: Satisfactory Nausea/Vomiting: None Hydration: Adequate Anesthesia-Related Issues: No Anes. Related Issues
== END 2021-05-22 11:30 | disposition home or self-care (01) | DRG 263 ==
LOC: HO.ED 04:33 → HO.EDOVER 05:16 → HO.S3 16:36
PROVIDERS: Surgery; Admitting Provider Surgery; Emergency Provider Student in an Organized Health Care Education/Training Program; PCP Internal Medicine; Visit Provider Surgery
PROC: 0FT44ZZ Resection of Gallbladder, Percutaneous Endoscopic Approach (ICD-10-PCS; CPT 47562; principal; 2021-05-21 13:40)
DX: K80.00 Calculus of gallbladder with acute cholecystitis without obstruction (principal); Z68.43 Body mass index [BMI] 50.0-59.9, adult; E66.01 Morbid (severe) obesity due to excess calories; I10 Essential (primary) hypertension; Z20.822 Contact with and (suspected) exposure to COVID-19; Z79.3 Long term (current) use of hormonal contraceptives; Z79.899 Other long term (current) drug therapy
CPT/HCPCS: 47562; 36415; 71046; 74177; 80053; 81001; 81025; 83690; 84484; 85025; 87086; 87147; 87635; 88304; 93005; 96365; 96375; 99285; J1100; J1170; J1650; J1885; J2250; J2270; J2405; J2543; J3010

== ENCOUNTER → 2021-06-07 09:25 | Outpatient (BNVA) | payer OTHER, SELFPAY | PROVIDERS: PCP Internal Medicine; Referring Provider Internal Medicine; Visit Provider Surgery | DX: Z48.815 Encounter for surgical aftercare following surgery on the digestive system (principal); Z90.49 Acquired absence of other specified parts of digestive tract | CPT/HCPCS: 99212 ==

== ENCOUNTER 2022-04-05 08:43 | Outpatient (REF) | payer OTHER, SELFPAY ==
[2022-04-05 09:13] LABS: COVID-19 Test Negative (Negative); IDNOW Serial# 16C4AD1C
== END 2022-04-05 08:44 | disposition home or self-care (01) ==
LOC: HO.LAB 08:43
PROVIDERS: Visit Provider Internal Medicine
DX: Z20.822 Contact with and (suspected) exposure to COVID-19 (principal)
CPT/HCPCS: 87635; C9803

== ENCOUNTER 2022-08-25 19:16 | Emergency (ER) | payer OTHER, SELFPAY ==
--- NOTE | ~2022-08-25 | CT_ITS ---
EXAMINATION: CT HEAD WITHOUT CONTRAST CLINICAL INFORMATION: Headache COMPARISON: None available. TECHNIQUE: Contiguous axial imaging was performed from the skull base to vertex without intravenous administration of contrast. This CT examination was performed using dose optimization techniques as appropriate, variously including the following: *Automated exposure control *Adjustment of mA and/or kV according to patient size (this includes techniques or standardized protocols for targeted exams where dose is matched to indication/reason for exam; i.e. extremities or head) *Use of iterative reconstruction technique DLP: 799 mGy-cm FINDINGS: There is no evidence of acute intracranial hemorrhage or territorial infarction. No abnormal mass effect or midline shift is seen. Farias to white matter differentiation is well preserved. No extra-axial fluid collections are identified. The ventricles are normal in size. There is no abnormal attenuation within the brain parenchyma. The osseous structures and soft tissues are normal. The mastoid air cells and visualized portions of the paranasal sinuses are well-aerated. CT/CT head/brain wo IV con IMPRESSION: No acute intracranial pathology.
[2022-08-25 19:49] VITALS: BP 180/92; PULSE 83; RESP 18; TEMP 36.8; O2SAT 99; BMI 52.1
--- NOTE | 2022-08-25 19:52 | ECG_ITS ---
Test Reason : HEADACHE Blood Pressure : / mmHG Vent. Rate : 090 BPM Atrial Rate : 090 BPM P-R Int : 138 ms QRS Dur : 092 ms QT Int : 352 ms P-R-T Axes : 020 -15 037 degrees QTc Int : 430 ms Normal sinus rhythm Minimal voltage criteria for LVH, may be normal variant ( Luis Fernando product ) Borderline ECG When compared with ECG of 21-MAY-2021 01:32, No significant change was found Referred By: Yeison Jacinto Electronically Signed By:OSMAR GOMES MD
--- NOTE | 2022-08-25 19:52 | ED.GENADULT ---
HPI - General Adult General Chief complaint: Headache <CORRY Tony - Last Filed: 08/27/22 13:31> Stated complaint: headaches <CORRY Tony - Last Filed: 08/27/22 13:31> Time Seen by Provider: 08/25/22 22:48 <CORRY Tony - Last Filed: 08/27/22 13:31> Source: patient <Hardik Robertson MD - Last Filed: 08/26/22 00:40> Mode of arrival: ambulatory <Hardik Robertson MD - Last Filed: 08/26/22 00:40> Limitations: no limitations <Hardik Robertson MD - Last Filed: 08/26/22 00:40> History of Present Illness HPI narrative: Patient with history of migraine headache coughed 3 days ago and noticed increased pain in the right side of the head including forehead which gets worse when she bent her head down. No nausea no vomiting has slight light sensitivity history of migraine headache but this headache seems to be little different no fever no chills no cough anymore no running nose patient had CT scan of the head done prior to my evaluation which was normal patient accidentally missed her blood pressure medicine today blood pressure on arrival was 180/92 repeat 155/99 <Hardik Robertson MD - Last Filed: 08/26/22 00:40> Related Data Home medications: Home Medications Medication Instructions Recorded Confirmed hydroxyzine HCl 10 mg tablet 10 mg PO BEDTIME PRN Anxiety 02/09/21 05/21/21 amlodipine 5 mg tablet 1 tab PO DAILY 05/21/21 05/21/21 norethindrone (contraceptive) 0.35 1 tab PO DAILY 05/21/21 05/21/21 mg tablet Previous Rx's Medication Instructions Recorded oxycodone 5 mg tablet 5 mg PO Q4H PRN pain (scale score 05/22/21 7-10) #24 tabs juifsvywrl-imrwybausnrjh-gtinhaxm 1 cap PO Q6H PRN headache #20 caps 08/26/22 50 mg-300 mg-40 mg capsule (Fioricet) sumatriptan succinate 50 mg tablet 50 mg PO Q2H PRN migraine headache 08/26/22 (Imitrex) #10 tabs <CORRY Tony - Last Filed: 08/27/22 13:31> Allergies/adverse reactions: Allergies Allergy/AdvReac Type Severity Reaction Status Date / Time No Known Allergies Allergy Verified 06/07/21 10:11 <CORRY Tony - Last Filed: 08/27/22 13:31> Review of Systems Review of Systems: Yes all other systems are reviewed and are negative <Hardik Robertson MD - Last Filed: 08/26/22 00:40> [facility] Past Medical History Medical History: Medical History Hypertension Morbid obesity <CORRY Tony - Last Filed: 08/27/22 13:31> Surgical History: Surgical History History of laparoscopic cholecystectomy History of salpingectomy <CORRY Tony - Last Filed: 08/27/22 13:31> Social History Social History: Social History Household Members: Family Housing: Apartment Do you presently have visiting nurse or other home services: No Alcohol intake: current Alcohol intake frequency: a few times a week Alcohol type: wine Patient Tobacco Use Status: Never used Tobacco Smoked in Last 30 Days: No Use of substances other than those prescribed or required for medical reasons: No Advance Directives: No Advance Directives Information Provided: No Patient : No service: No Current occupational status: unemployed <CORRY Tony - Last Filed: 08/27/22 13:31> Physical Exam ED Vital Signs: Vital Signs - 24 hr 08/25/22 19:49 08/25/22 22:27 Temperature 98.3 F 98.6 F Pulse Rate 83 93 Respiratory Rate 18 17 Blood Pressure 180/92 H 155/99 H Pulse Oximetry 99 98 Oxygen Delivery Method Room Air Nasal Cannula BMI result Body Mass Index 52.1 <CORRY Tony - Last Filed: 08/27/22 13:31> Vital Signs - 24 hr 08/25/22 19:49 08/25/22 22:27 Temperature 98.3 F 98.6 F Pulse Rate 83 93 Respiratory Rate 18 17 Blood Pressure 180/92 H 155/99 H Pulse Oximetry 99 98 Oxygen Delivery Method Room Air Nasal Cannula BMI result Body Mass Index 52.1 <Hardik Robertson MD - Last Filed: 08/26/22 00:40> Appearance: Alert. Oriented X3. No acute distress. Eyes: PERRLA, No Nystagmus HEENT: Pharynx normal. Oral Mucosa moist right frontal sinus tenderness, no temporal artery tenderness clear nares Neck: Normal inspection. Neck supple. CVS: Normal heart rate and rhythm. Pulses normal. Respiratory: No respiratory distress. Equal air entry bilateral, no wheezing/rales/rhonchi Abdomen: Soft and nontender. Bowel sounds are present, no mass palpable, no CVA tenderness Skin: Skin warm and dry. Normal skin color. Normal skin turgor. Extremities: No lower extremity edema. No calf tenderness Neuro: Oriented X 3. No motor deficit. No sensory deficit.No cerebellar signs , cranial nerves II-XII intact <Hardik Robertson MD - Last Filed: 08/26/22 00:40> Course Course Course Narrative: RME: 36 yold female presents to the ED for headache since friday. Patient has pmh of headache. Patient is hypertensive systolic of 180. no neuro deficits. labs, EKG, and Head CT scan ordred <CORRY Tony - Last Filed: 08/27/22 13:31> Medications Administered Discontinued Medications Generic Name Dose Route Start Last Admin Trade Name Freq PRN Reason Stop Dose Admin Acetaminophen/Butalbital/Caffeine 1 tab 08/25/22 23:08 08/25/22 23:36 Butalb/Acetamin/Caff 50/325/40 Tablet PO 08/25/22 23:09 1 tab ONCE ONE Administration Amlodipine Besylate 5 mg 08/26/22 00:39 08/26/22 01:04 Amlodipine Besylate 5 Mg Tablet PO 08/26/22 00:40 5 mg ONCE ONE Administration Protocol Sumatriptan Succinate 6 mg 08/25/22 23:08 08/25/22 23:34 Sumatriptan Succinate 6 Mg/0.5 Ml Vial SUBCUT 08/25/22 23:09 6 mg ONCE ONE Administration <CORRY Tony - Last Filed: 08/27/22 13:31> Medications Administered Discontinued Medications Generic Name Dose Route Start Last Admin Trade Name Freq PRN Reason Stop Dose Admin Acetaminophen/Butalbital/Caffeine 1 tab 08/25/22 23:08 08/25/22 23:36 Butalb/Acetamin/Caff 50/325/40 Tablet PO 08/25/22 23:09 1 tab ONCE ONE Administration Amlodipine Besylate 5 mg 08/26/22 00:39 08/26/22 01:04 Amlodipine Besylate 5 Mg Tablet PO 08/26/22 00:40 5 mg ONCE ONE Administration Protocol Sumatriptan Succinate 6 mg 08/25/22 23:08 08/25/22 23:34 Sumatriptan Succinate 6 Mg/0.5 Ml Vial SUBCUT 08/25/22 23:09 6 mg ONCE ONE Administration <Hardik Robertson MD - Last Filed: 08/26/22 00:40> Medical Decision Making Lab Data Result Diagrams: 08/25/22 20:17 08/25/22 20:17 <CORRY Tony - Last Filed: 08/27/22 13:31> Labs: Lab Results 08/25/22 08/25/22 08/25/22 Range/Units 20:17 20:17 20:17 WBC 18.5 H (4.8-10.8) X10*3/uL RBC 5.29 (4.20-5.50) X10*6/uL Hgb 14.4 (12.0-16.0) g/dl Hct 44.7 (37.0-47.0) % MCV 84.5 (80.0-98.0) fL MCH 27.2 (27.0-33.0) pg MCHC 32.2 (31.0-35.0) g/dl RDW 13.9 (11.0-16.0) % Plt Count 441 H D (160-400) X10*3/uL MPV 9.0 L (9.4-12.3) fL Immature Gran % (Auto) 0.5 H (0.0-0.4) % Neut % (Auto) 62.3 (45-73) % Lymph % (Auto) 28.9 (20-40) % [place] % (Auto) 6.7 (2-11) % Eos % (Auto) 1.1 (0-4) % Baso % (Auto) 0.5 (0-2) % Lymph # (Auto) 5.3 H (1.2-4.9) X10*3/uL [place] # (Auto) 1.2 (0.1-1.2) X10*3/uL Eos # (Auto) 0.2 (0.0-0.4) X10*3/uL Baso # (Auto) 0.1 (0.0-0.2) X10*3/uL Abs Immat Gran (auto) 0.09 H (0.00-0.03) X10*3/uL Absolute Neuts (auto) 11.5 H (2.0-8.3) x10*3/uL Absolute Nucleated RBC 0.000 (0.0-0.012) X10*3/uL Nucleated RBC % (auto) 0.0 (0.0-0.2) /100WBC Smear Tech's Comments VERIFIED PT 11.9 (10.0-13.1) SEC INR 1.0 (0.9-1.1) APTT 35.9 (26.0-36.4) SEC Sodium 141 (135-145) mmol/L Potassium 4.6 D (3.3-5.1) mmol/L Chloride 106 (96-108) mmol/L Carbon Dioxide 28 (22-29) mmol/L Anion Gap 12 (12-20) BUN 17 H (9-16) mg/dL Creatinine 0.88 (0.5-1.4) mg/dL Estim Creat Clear Calc 115.2 Estimated GFR > 60 Random Glucose 88 (60-115) mg/dL Calcium 9.6 (8.4-10.2) mg/dL Total Bilirubin 0.7 (0.0-1.0) mg/dL AST 11 (5-31) U/L ALT 16 (0-31) U/L Alkaline Phosphatase 133 H (39-117) U/L Troponin I High Sens (<3.5-17.0) ng/L Total Protein 7.3 (6.5-8.0) g/dL Albumin 4.1 (3.5-5.0) g/dL Beta HCG, Quant < 2 mIU/mL 08/25/22 Range/Units 20:17 WBC (4.8-10.8) X10*3/uL RBC (4.20-5.50) X10*6/uL Hgb (12.0-16.0) g/dl Hct (37.0-47.0) % MCV (80.0-98.0) fL MCH (27.0-33.0) pg MCHC (31.0-35.0) g/dl RDW (11.0-16.0) % Plt Count (160-400) X10*3/uL MPV (9.4-12.3) fL Immature Gran % (Auto) (0.0-0.4) % Neut % (Auto) (45-73) % Lymph % (Auto) (20-40) % [place] % (Auto) (2-11) % Eos % (Auto) (0-4) % Baso % (Auto) (0-2) % Lymph # (Auto) (1.2-4.9) X10*3/uL [place] # (Auto) (0.1-1.2) X10*3/uL Eos # (Auto) (0.0-0.4) X10*3/uL Baso # (Auto) (0.0-0.2) X10*3/uL Abs Immat Gran (auto) (0.00-0.03) X10*3/uL Absolute Neuts (auto) (2.0-8.3) x10*3/uL Absolute Nucleated RBC (0.0-0.012) X10*3/uL Nucleated RBC % (auto) (0.0-0.2) /100WBC Smear Tech's Comments PT (10.0-13.1) SEC INR (0.9-1.1) APTT (26.0-36.4) SEC Sodium (135-145) mmol/L Potassium (3.3-5.1) mmol/L Chloride (96-108) mmol/L Carbon Dioxide (22-29) mmol/L Anion Gap (12-20) BUN (9-16) mg/dL Creatinine (0.5-1.4) mg/dL Estim Creat Clear Calc Estimated GFR Random Glucose (60-115) mg/dL Calcium (8.4-10.2) mg/dL Total Bilirubin (0.0-1.0) mg/dL AST (5-31) U/L ALT (0-31) U/L Alkaline Phosphatase (39-117) U/L Troponin I High Sens < 2.7 (<3.5-17.0) ng/L Total Protein (6.5-8.0) g/dL Albumin (3.5-5.0) g/dL Beta HCG, Quant mIU/mL <CORRY Tony - Last Filed: 08/27/22 13:31> Lab Results 08/25/22 08/25/22 08/25/22 Range/Units 20:17 20:17 20:17 WBC 18.5 H (4.8-10.8) X10*3/uL RBC 5.29 (4.20-5.50) X10*6/uL Hgb 14.4 (12.0-16.0) g/dl Hct 44.7 (37.0-47.0) % MCV 84.5 (80.0-98.0) fL MCH 27.2 (27.0-33.0) pg MCHC 32.2 (31.0-35.0) g/dl RDW 13.9 (11.0-16.0) % Plt Count 441 H D (160-400) X10*3/uL MPV 9.0 L (9.4-12.3) fL Immature Gran % (Auto) 0.5 H (0.0-0.4) % Neut % (Auto) 62.3 (45-73) % Lymph % (Auto) 28.9 (20-40) % [place] % (Auto) 6.7 (2-11) % Eos % (Auto) 1.1 (0-4) % Baso % (Auto) 0.5 (0-2) % Lymph # (Auto) 5.3 H (1.2-4.9) X10*3/uL [place] # (Auto) 1.2 (0.1-1.2) X10*3/uL Eos # (Auto) 0.2 (0.0-0.4) X10*3/uL Baso # (Auto) 0.1 (0.0-0.2) X10*3/uL Abs Immat Gran (auto) 0.09 H (0.00-0.03) X10*3/uL Absolute Neuts (auto) 11.5 H (2.0-8.3) x10*3/uL Absolute Nucleated RBC 0.000 (0.0-0.012) X10*3/uL Nucleated RBC % (auto) 0.0 (0.0-0.2) /100WBC Smear Tech's Comments VERIFIED PT 11.9 (10.0-13.1) SEC INR 1.0 (0.9-1.1) APTT 35.9 (26.0-36.4) SEC Sodium 141 (135-145) mmol/L Potassium 4.6 D (3.3-5.1) mmol/L Chloride 106 (96-108) mmol/L Carbon Dioxide 28 (22-29) mmol/L Anion Gap 12 (12-20) BUN 17 H (9-16) mg/dL Creatinine 0.88 (0.5-1.4) mg/dL Estim Creat Clear Calc 115.2 Estimated GFR > 60 Random Glucose 88 (60-115) mg/dL Calcium 9.6 (8.4-10.2) mg/dL Total Bilirubin 0.7 (0.0-1.0) mg/dL AST 11 (5-31) U/L ALT 16 (0-31) U/L Alkaline Phosphatase 133 H (39-117) U/L Troponin I High Sens (<3.5-17.0) ng/L Total Protein 7.3 (6.5-8.0) g/dL Albumin 4.1 (3.5-5.0) g/dL Beta HCG, Quant < 2 mIU/mL 08/25/22 Range/Units 20:17 WBC (4.8-10.8) X10*3/uL RBC (4.20-5.50) X10*6/uL Hgb (12.0-16.0) g/dl Hct (37.0-47.0) % MCV (80.0-98.0) fL MCH (27.0-33.0) pg MCHC (31.0-35.0) g/dl RDW (11.0-16.0) % Plt Count (160-400) X10*3/uL MPV (9.4-12.3) fL Immature Gran % (Auto) (0.0-0.4) % Neut % (Auto) (45-73) % Lymph % (Auto) (20-40) % [place] % (Auto) (2-11) % Eos % (Auto) (0-4) % Baso % (Auto) (0-2) % Lymph # (Auto) (1.2-4.9) X10*3/uL [place] # (Auto) (0.1-1.2) X10*3/uL Eos # (Auto) (0.0-0.4) X10*3/uL Baso # (Auto) (0.0-0.2) X10*3/uL Abs Immat Gran (auto) (0.00-0.03) X10*3/uL Absolute Neuts (auto) (2.0-8.3) x10*3/uL Absolute Nucleated RBC (0.0-0.012) X10*3/uL Nucleated RBC % (auto) (0.0-0.2) /100WBC Smear Tech's Comments PT (10.0-13.1) SEC INR (0.9-1.1) APTT (26.0-36.4) SEC Sodium (135-145) mmol/L Potassium (3.3-5.1) mmol/L Chloride (96-108) mmol/L Carbon Dioxide (22-29) mmol/L Anion Gap (12-20) BUN (9-16) mg/dL Creatinine (0.5-1.4) mg/dL Estim Creat Clear Calc Estimated GFR Random Glucose (60-115) mg/dL Calcium (8.4-10.2) mg/dL Total Bilirubin (0.0-1.0) mg/dL AST (5-31) U/L ALT (0-31) U/L Alkaline Phosphatase (39-117) U/L Troponin I High Sens < 2.7 (<3.5-17.0) ng/L Total Protein (6.5-8.0) g/dL Albumin (3.5-5.0) g/dL Beta HCG, Quant mIU/mL <Hardik Robertson MD - Last Filed: 08/26/22 00:40> Discharge Plan Discharge Clinical Impression: Migraine <CORRY Tony - Last Filed: 08/27/22 13:31> Patient Disposition: Home, Self-Care <CORRY Tony - Last Filed: 08/27/22 13:31> Instructions: Migraine Headache (ED) <CORRY Tony - Last Filed: 08/27/22 13:31> Additional Instructions: Take Imitrex 1 tab at onset of headache may repeat in 2 hours if headache continues not more than 2 tablets in 24 hours Fioricet 1 tablet every 6 hours as needed Follow with PCP if not better Take blood pressure medication on time <CORRY Tony - Last Filed: 08/27/22 13:31> Prescriptions: New sumatriptan succinate [Imitrex] 50 mg tablet 50 mg PO Q2H PRN (Reason: migraine headache) Qty: 10 0RF Rx Instructions: do not exceed 2 doses per 24 hrs [id number] [Fioricet] 50-300-40 mg capsule 1 cap PO Q6H PRN (Reason: headache) Qty: 20 0RF No Action amlodipine 5 mg tablet 1 tab PO DAILY norethindrone (contraceptive) 0.35 mg tablet 1 tab PO DAILY oxycodone 5 mg tablet 5 mg PO Q4H PRN (Reason: pain (scale score 7-10)) Qty: 24 0RF hydroxyzine HCl 10 mg tablet 10 mg PO BEDTIME PRN (Reason: Anxiety) <CORRY Tony - Last Filed: 08/27/22 13:31> Interventions: ED Discharge Assessment Last Done: 08/26/22 01:09 <CORRY Tony - Last Filed: 08/27/22 13:31> Discharge Date/Time: 08/26/22 01:10 <CORRY Tony - Last Filed: 08/27/22 13:31>
[2022-08-25 20:54] LABS: Basophils Absolute Auto 0.1 X10*3/uL (0.0-0.2); Basophils Percent Auto 0.5 % (0-2); Eosinophils Absolute Auto 0.2 X10*3/uL (0.0-0.4); Eosinophils Percent Auto 1.1 % (0-4); Hematocrit 44.7 % (37.0-47.0); Hemoglobin 14.4 g/dl (12.0-16.0); Imm Gran Abs Auto 0.09 X10*3/uL (0.00-0.03); Imm Gran Pct Auto 0.5 % (0.0-0.4); Lymphocytes Absolute Auto 5.3 X10*3/uL (1.2-4.9); Lymphocytes Percent Auto 28.9 % (20-40); MANUAL DIFF FLAG SCAN; Mean Corpuscular HGB Conc 32.2 g/dl (31.0-35.0); Mean Corpuscular Hemoglobin 27.2 pg (27.0-33.0); Mean Corpuscular Volume 84.5 fL (80.0-98.0); Monocytes Absolute Auto 1.2 X10*3/uL (0.1-1.2); Monocytes Percent Auto 6.7 % (2-11); Neutrophils Absolute Auto 11.5 x10*3/uL (2.0-8.3); Neutrophils Percent Auto 62.3 % (45-73); Platelet Count 441 X10*3/uL (160-400); Prothrombin Time 11.9 SEC (10.0-13.1); Red Blood Count 5.29 X10*6/uL (4.20-5.50); Red Cell Distribution Width 13.9 % (11.0-16.0); SCAN SMEAR FLAG 1; White Blood Count 18.5 X10*3/uL (4.8-10.8)
[2022-08-25 20:57] LABS: Alanine Aminotransferase 16 U/L (0-31); Albumin Level 4.1 g/dL (3.5-5.0); Alkaline Phosphatase 133 U/L (39-117); Anion Gap 12 (12-20); Aspartate Amino Transferase 11 U/L (5-31); Bilirubin Total 0.7 mg/dL (0.0-1.0); Blood Urea Nitrogen 17 mg/dL (9-16); Calcium 9.6 mg/dL (8.4-10.2); Carbon Dioxide 28 mmol/L (22-29); Chloride 106 mmol/L (96-108); Creatinine Clr Calc Pharmacy 115.2; Estimated Glomerular Filt Rate > 60; Glucose Random 88 mg/dL (60-115); Partial Thromboplastin Time 35.9 SEC (26.0-36.4); Potassium 4.6 mmol/L (3.3-5.1); Sodium 141 mmol/L (135-145); Total Protein 7.3 g/dL (6.5-8.0)
[2022-08-25 20:59] LABS: HCG Quantitative < 2 mIU/mL; Troponin-I High Sensitivity < 2.7 ng/L (<3.5-17.0)
[2022-08-25 21:11] LABS: SLIDE REVIEW VERIFIED
[2022-08-25 22:27] VITALS: BP 155/99; PULSE 93; RESP 17; TEMP 37; O2SAT 98
[2022-08-25] MEDS: SUMAtriptan succinate 6 MG/0.5 ML VIAL SUBCUT (23:34)
[2022-08-25] MEDS: Butalb/Acetamin/Caff 50/325/40 TABLET 1 TAB PO (23:36)
[2022-08-26 00:58] VITALS: BP 152/82; PULSE 84; RESP 17; TEMP 36.6; O2SAT 97
[2022-08-26] MEDS: amLODIPine Besylate 5 MG TABLET PO (01:04)
== END 2022-08-26 01:10 | disposition home or self-care (01) ==
PROVIDERS: Physician Assistant; Emergency Provider Internal Medicine; PCP Internal Medicine
DX: G43.909 Migraine, unspecified, not intractable, without status migrainosus (principal); R94.31 Abnormal electrocardiogram [ECG] [EKG]; I10 Essential (primary) hypertension; Z79.899 Other long term (current) drug therapy
CPT/HCPCS: 36415; 70450; 80053; 84484; 84702; 85025; 85610; 85730; 93005; 96372; 99284; 99285; J3030

== ENCOUNTER 2024-03-18 11:22 | Emergency (ER) | payer OTHER, SELFPAY ==
--- NOTE | ~2024-03-18 | US_ITS ---
EXAMINATION: US TRIPLEX UPPER EXTREMITY, LEFT CLINICAL INFORMATION: Swelling, left upper extremity COMPARISON: None available. TECHNIQUE: Color-flow triplex imaging with spectral analysis and compression Doppler was performed on the left upper extremity. FINDINGS: The left internal jugular, subclavian, and axillary veins are patent and free of thrombus. The imaged segment of the left brachiocephalic vein is patent. Spectral doppler waveforms are normal. The brachial, basilic, cephalic, radial, and ulnar veins are patent and compressible. Nonspecific 2.2 cm lymph nodes in the left supraclavicular notch. US/US venous duplex UE LT IMPRESSION: No acute deep venous thrombosis in the interrogated veins, left upper extremity. Electronically signed by: Reagan Ackerman MD 03/18/2024 03:33 PM MICHAEL
[2024-03-18 11:28] VITALS: BP 171/100; PULSE 108; RESP 20; TEMP 37; O2SAT 98; BMI 50.5
[2024-03-18 11:42] VITALS: BP 170/104; PULSE 111; RESP 16; TEMP 36.7; O2SAT 97
--- NOTE | 2024-03-18 12:04 | ED.GENADULT ---
HPI - General Adult General Chief complaint: General Medical Stated complaint: blood clot, med withdrawal Time Seen by Provider: 03/18/24 11:48 Source: patient, family, RN notes reviewed and old records reviewed Mode of arrival: ambulatory Limitations: no limitations History of Present Illness ED Provider: Alba Dunn PA-C HPI narrative: 38 yo female with history of acute cholecystitis s/p lap fernando, HTN, anxiety/depression who presents to the ER for evaluation of nausea and lightheadedness for the last 3 days after being off of her sertraline 100 mg. she reports insurance issues with getting it refilled and picked up. she has been increasingly anxious about all of this. she states she woke up this morning with left lateral upper arm pain, soreness. she thought it was from sleeping on it but had an area of redness so she was very concerned about a blood clot. she denies any weakness, numbness, tingling in the arm. no significant swelling. no hx dvt in ther past. MD complaint: anxiety, nausea, left arm pain Onset (ago): day(s) Location: upper extremity Radiation: non-radiation Severity: mild Quality: aching Pain Consistency: constant Relieving factors: none Exacerbating factors: none Associated symptoms: nausea/vomiting and other (anxiety) Treatments prior to arrival: none Related Data Home Medications ?Medication ?Instructions ?Recorded ?Confirmed hydroxyzine HCl 10 mg tablet 10 mg PO BEDTIME PRN Anxiety 02/09/21 05/21/21 amlodipine 5 mg tablet 1 tab PO DAILY 05/21/21 05/21/21 norethindrone (contraceptive) 0.35 1 tab PO DAILY 05/21/21 05/21/21 mg tablet Previous Rx's ?Medication ?Instructions ?Recorded oxycodone 5 mg tablet 5 mg PO Q4H PRN pain (scale score 05/22/21 7-10) #24 tabs ocncekcpjb-zcevooksxdknm-kjmjwaah 1 cap PO Q6H PRN headache #20 caps 08/26/22 50 mg-300 mg-40 mg capsule (Fioricet) sumatriptan succinate 50 mg tablet 50 mg PO Q2H PRN migraine headache 08/26/22 (Imitrex) #10 tabs sertraline 100 mg tablet (Zoloft) 100 mg PO DAILY #30 tabs 03/18/24 Allergies Allergy/AdvReac Type Severity Reaction Status Date / Time No Known Allergies Allergy Verified 03/18/24 11:31 Review of Systems Review of Systems: Yes all other systems are reviewed and are negative [facility] Past Medical History Medical History Hypertension Morbid obesity Surgical History History of laparoscopic cholecystectomy History of salpingectomy Social History Social History (System 02/12/23 @ 14:46 by Amelia Shabazz) Household Members: Family Housing: Apartment Do you presently have visiting nurse or other home services: No Alcohol intake: current Alcohol intake frequency: a few times a week Alcohol type: wine Patient Tobacco Use Status: Never used Tobacco service: No Current occupational status: unemployed Physical Exam ED Vital Signs: Vital Signs - 24 hr 03/18/24 11:28 03/18/24 11:42 03/18/24 14:36 Temperature 98.6 F 98.1 F 98.9 F Pulse Rate 108 H 111 H 97 Respiratory Rate 20 16 21 H Blood Pressure 171/100 H 170/104 H 144/86 H Pulse Oximetry 98 97 98 Oxygen Delivery Method Room Air Room Air Room Air 03/18/24 15:00 03/18/24 16:16 Temperature 98.3 F 98.3 F Pulse Rate 87 87 Respiratory Rate 18 18 Blood Pressure 144/88 H 144/88 H Pulse Oximetry 95 95 Oxygen Delivery Method Room Air Room Air BMI result Body Mass Index 50.5 Appearance: Alert. Oriented X3. No acute distress. Head: normocephalic, atraumatic. Eyes: Pupils equal, round and reactive to light. ENT: Pharynx normal. No tonsillar swelling or exudate. Neck: Normal inspection. Neck supple. CVS: tachycardic, regular rhythm, HR low 100s. Pulses normal. Respiratory: No respiratory distress. Breath sounds normal. Abdomen: Soft and nontender. +BS x4 Skin: Skin warm and dry. Normal skin color. Normal skin turgor. No rashes. Extremities: No lower extremity edema. No joint swelling. Left upper lateral arm with soft tissue tenderness diffusely, no erythema, no swelling. NV intact distally. Neuro/psych: Oriented X 3. No motor deficit. No sensory deficit. CN II-XII intact. Normal speech and cognition. Medications Administered Discontinued Medications Generic Name Dose Route Start Last Admin Trade Name Natalia PRN Reason Stop Dose Admin Ondansetron HCl 4 mg 03/18/24 11:54 03/18/24 12:09 Ondansetron Odt 4 Mg Tab.Flynndis TRANSLINGU 03/18/24 11:55 4 mg ONCE ONE Administration Sertraline HCl 100 mg 03/18/24 11:54 03/18/24 12:09 Sertraline Hcl 100 Mg Tablet PO 03/18/24 11:55 100 mg ONCE ONE Administration Medical Decision Making Medical Decision Making MDM Narrative: 38 yo female presenting with dizziness, nausea and anxiety after being off of zoloft x3 days. given zoloft here and she is already feeling better US LUE without DVT. likely MSK pain. supportive care recommended. patient feeling improved. no SI/HI. 1 month worth of her zoloft sent to her pharmacy unti she can sort out insurance issues. Differential Diagnosis Differential Diagnoses: The differential diagnosis associated with the presentation includes anxiety, SSRI withdrawal, msk pain of the arm, low suspicion for dvt Independent Interpretation I performed an independent interpretation of an: Ultrasound Interpretation: no dvt appreciated Radiology Impression Discussion of test interpretation with radiology: I have reviewed the radiologist's reading. External Record Review External record reviewed: Outpatient record, Prior outpatient labs and Prior outpatient radiology Prescription Management I considered prescription management with: Other (sertraline) Chronic Conditions Patient?s care impacted by: Other (anxiety) Critical Care Time Critical Care Time Critical Care Time: No Discharge Plan Discharge Clinical Impression: Anxiety, Arm pain, left Patient Disposition: Home, Self-Care Instructions: Anxiety (ED) Additional Instructions: Your ultrasound today was normal. Recommend using warm compresses to the area. Take Motrin and Tylenol as needed for pain. Take your prescribed sertraline as directed, next dose is due tomorrow. One-month supply has been sent to your pharmacy. Follow-up with your primary care doctor for further prescribing of this. If you develop new or worsening symptoms call 911 or come back to the ER for further evaluation. Prescriptions: New sertraline [Zoloft] 100 mg tablet 100 mg PO DAILY Qty: 30 0RF No Action amlodipine 5 mg tablet 1 tab PO DAILY norethindrone (contraceptive) 0.35 mg tablet 1 tab PO DAILY oxycodone 5 mg tablet 5 mg PO Q4H PRN (Reason: pain (scale score 7-10)) Qty: 24 0RF sumatriptan succinate [Imitrex] 50 mg tablet 50 mg PO Q2H PRN (Reason: migraine headache) Qty: 10 0RF Rx Instructions: do not exceed 2 doses per 24 hrs bzsezekjnh-fuhlenryhpuik-jett [Fioricet] 50-300-40 mg capsule 1 cap PO Q6H PRN (Reason: headache) Qty: 20 0RF hydroxyzine HCl 10 mg tablet 10 mg PO BEDTIME PRN (Reason: Anxiety) Referrals: Andrey Guardado III, MD [Primary Care Provider] - Interventions: ED Discharge Assessment Last Done: 03/18/24 16:16 Discharge Date/Time: 03/18/24 16:20 Print Language: Irish
[2024-03-18] MEDS: Ondansetron ODT 4 MG TAB.RAPDIS TRANSLINGU (12:09)
[2024-03-18] MEDS: Sertraline HCL 100 MG TABLET PO (12:09)
[2024-03-18 14:36] VITALS: BP 144/86; PULSE 97; RESP 21; TEMP 37.2; O2SAT 98
[2024-03-18 15:00] VITALS: BP 144/88; PULSE 87; RESP 18; TEMP 36.8; O2SAT 95
[2024-03-18 16:16] VITALS: BP 144/88; PULSE 87; RESP 18; TEMP 36.8; O2SAT 95
== END 2024-03-18 16:20 | disposition home or self-care (01) ==
PROVIDERS: Emergency Provider Emergency Medicine; PCP Internal Medicine
DX: F19.139 Other psychoactive substance abuse with withdrawal, unspecified (principal); F41.9 Anxiety disorder, unspecified; R60.0 Localized edema; M79.602 Pain in left arm; I10 Essential (primary) hypertension; F33.1 Major depressive disorder, recurrent, moderate; R11.2 Nausea with vomiting, unspecified
CPT/HCPCS: 93971; 99283; 99284

== ENCOUNTER → 2024-03-18 13:41 | Outpatient (BNV) | payer SELFPAY | PROVIDERS: Emergency Provider Emergency Medicine; PCP Internal Medicine; Visit Provider Radiology Diagnostic Radiology | DX: R22.32 Localized swelling, mass and lump, left upper limb (principal) | CPT/HCPCS: 93971 ==

== ENCOUNTER 2024-06-30 16:24 | Emergency (ER) | payer OTHER, SELFPAY ==
--- NOTE | ~2024-06-30 | XR_ITS ---
CLINICAL HISTORY: R foot pain 4 view right foot Comparison: None Findings: No fractures or dislocations. No significant arthritic change. Small calcaneal spur. No ankle effusion. No radiopaque foreign body. IMPRESSION: 1. No acute findings. This document has been electronically signed by: Annalisa Snow MD on 06/30/2024 18:03:04
--- NOTE | ~2024-06-30 | XR_ITS ---
CLINICAL HISTORY: R ankle pain Three views right ankle. Findings: No acute fractures are seen. The ankle mortise is intact. There is mild calcaneal spurring. Impression: No acute fractures. This document has been electronically signed by: Yobany Topete MD on 06/30/2024 18:12:01
[2024-06-30 17:07] VITALS: BP 199/95; PULSE 92; RESP 16; TEMP 36.6; O2SAT 99; BMI 51.6
--- NOTE | 2024-06-30 17:07 | ED_ITS ---
HPI - Extremity Injury (Lower) General Chief Complaint: Extremity Injury, Lower Stated Complaint: plantar fasciitis increased pain Time Seen by Provider: 06/30/24 18:30 Source: RN notes reviewed and old records reviewed History of Present Illness ED Provider: Shivani Barton PA-C HPI Narrative: 38-year-old female with a past medical history of HTN, obesity, plantar fasciitis falls with Podiatry, presenting to the ED complaining of worsening right foot pain x1 month with radiation to right ankle. Denies known injury, trauma or fall. Takes ibuprofen at home without relief and performs stretches. Denies numbness, tingling, weakness, history of gout, pedal edema, calf tenderness, travel, history of clots Related Data Home Medications ?Medication ?Instructions ?Recorded ?Confirmed hydroxyzine HCl 10 mg tablet 10 mg PO BEDTIME PRN Anxiety 02/09/21 05/21/21 amlodipine 5 mg tablet 1 tab PO DAILY 05/21/21 05/21/21 norethindrone (contraceptive) 0.35 1 tab PO DAILY 05/21/21 05/21/21 mg tablet Previous Rx's ?Medication ?Instructions ?Recorded oxycodone 5 mg tablet 5 mg PO Q4H PRN pain (scale score 05/22/21 7-10) #24 tabs nlbidiucql-walafuoetdlmk-jgfngmce 1 cap PO Q6H PRN headache #20 caps 08/26/22 50 mg-300 mg-40 mg capsule (Fioricet) sumatriptan succinate 50 mg tablet 50 mg PO Q2H PRN migraine headache 08/26/22 (Imitrex) #10 tabs sertraline 100 mg tablet (Zoloft) 100 mg PO DAILY #30 tabs 03/18/24 acetaminophen 500 mg tablet 500 mg PO Q6H PRN fever or pain 06/30/24 (Tylenol Extra Strength) #14 tabs naproxen 500 mg tablet 500 mg PO BID PRN pain 10 days #20 06/30/24 tabs Allergies Allergy/AdvReac Type Severity Reaction Status Date / Time No Known Allergies Allergy Verified 06/30/24 17:09 Review of Systems Review of Systems: Yes all other systems are reviewed and are negative Constitutional: Constitutional: Reports as per [facility] Past Medical History Attestation statement: The following information was validated with the patient. Source: old records reviewed Medical History Morbid obesity Hypertension Surgical History History of laparoscopic cholecystectomy History of salpingectomy Social History Social History Household Members: Family Housing: Apartment Do you presently have visiting nurse or other home services: No Alcohol intake: current Alcohol intake frequency: a few times a week Alcohol type: wine Patient Tobacco Use Status: Never used Tobacco service: No Current occupational status: unemployed Physical Exam Vital Signs: Vital Signs: Last Vital Signs Temp 97.9 F 06/30/24 17:07 Pulse 92 06/30/24 17:07 Resp 16 06/30/24 17:07 BP 199/95 H 06/30/24 17:07 Pulse Ox 99 06/30/24 17:07 O2 Del Method Room Air 06/30/24 17:07 BMI result Body Mass Index 51.6 Const: General: cooperative, healthy appearing and no acute distress Orientation/consciousness: patient oriented x3 Limitations: no limitations HEENT: Head: Yes normal to inspection and Yes atraumatic Ears: hearing grossly normal bilaterally General nose exam: Normal external nose present Face and sinus: Yes normal facial exam Eyes: General: appearance normal, both eyes and all related structures EOM: EOMs intact bilaterally Neck: Neck: Yes normal visual inspection and Yes no meningeal signs Resp: Effort & Inspection: normal respiratory effort and no respiratory distress Cardio: Rate: regular rate Skin: Rashes: no rashes Wounds: no wounds Neuro: General: patient oriented x3, tone normal and no meningeal signs Cranial nerves: Yes CN's II-XII intact bilaterally Gait exam (Neuro): Normal gait present Extrem: Other: Right lateral malleolus with appreciable swelling. Tender to palpation. ROM intact. Proximal foot with mild tenderness. Neurovascularly intact. No erythema/warmth, crepitus or ecchymosis. No reproducible plantar fascia tenderness No pitting edema. No calf tenderness. Achilles nontender Course Course Course Narrative: This is a Rapid Medical Exam performed in triage by Shivani Barton PA-C. Full HPI, ROS and PE to be performed by primary ED provider. 38yo F w/pmhx obesity, HTN, plantar fasciitis presenting to the ED c/o worsening right foot pain x 1 mos radiating to ankle. denies injury/fall. Takes Ibuprofen at home w/o relief. PE: R ankle with mild lateral malleolar swelling and reproducible tenderness. + tenderness to foot. No plantar fascia tenderness Plan: XR -183--XRs unremarkable >> Chris wraps applied the patient. Recommended PCP and podiatry follow up Results discussed with patient including worrisome signs and symptoms and strict return precautions, and when to return to the emergency department. They verbal ized understanding and feel safe for discharge at this time. Medical Decision Making Medical Decision Making MDM Narrative: 38-year-old female with a past medical history of HTN, obesity, plantar fasciitis falls with Podiatry, presenting to the ED complaining of worsening right foot pain x1 month with radiation to right ankle. On exam initially hypertensive, NAD, nontoxic appearing, physical exam as noted above. Concern for sprain/strain vs ? Fracture vs arthralgia. Low suspicion for DVT, septic joint/arthritis or gout Plan: X-ray, IM Toradol Please refer to course for remaining clinical decision making, interpretation of labs/imaging results, and discussions with consultants and/or family members. Differential Diagnosis Differential Diagnoses: The differential diagnosis associated with the presentation includes As above Independent Interpretation I performed an independent interpretation of an: Plain X-Ray Radiology Impression Discussion of test interpretation with radiology: I have reviewed the radiologist's reading. External Record Review External record reviewed: Inpatient record, Office record, Outpatient record, Prior outpatient labs, Prior outpatient radiology, Primary care record and Outside ED record Tests considered The following testing was considered but not selected: As above Prescription Management I considered prescription management with: Pain Medication Social Determinants Patient?s care significantly limited by Social Determinants of Health including: Other Social Determinant of Health Discharge Plan Discharge Clinical Impression: Arthralgia, Ankle sprain Patient Disposition: Home, Self-Care Instructions: Arthralgia (ED), R.I.C.E. Treatment (ED) Additional Instructions: Your x-rays are unremarkable Use Chris wrap at home for compression/stability Naproxen as an anti-inflammatory / pain medication, take with food In addition take Tylenol at home Please follow-up with your latex dipper and primary care doctor. We also put orthopedic referral as needed If her pain persists or worsens/becomes unbearable, joint becomes red, warm or you have fever return to the ED Prescriptions: New acetaminophen [Tylenol Extra Strength] 500 mg tablet 500 mg PO Q6H PRN (Reason: fever or pain) Qty: 14 0RF naproxen 500 mg tablet 500 mg PO BID PRN (Reason: pain) 10 Days Qty: 20 0RF No Action amlodipine 5 mg tablet 1 tab PO DAILY norethindrone (contraceptive) 0.35 mg tablet 1 tab PO DAILY oxycodone 5 mg tablet 5 mg PO Q4H PRN (Reason: pain (scale score 7-10)) Qty: 24 0RF sumatriptan succinate [Imitrex] 50 mg tablet 50 mg PO Q2H PRN (Reason: migraine headache) Qty: 10 0RF Rx Instructions: do not exceed 2 doses per 24 hrs xjkokonvml-ijcucmpsxkxiy-owwh [Fioricet] 50-300-40 mg capsule 1 cap PO Q6H PRN (Reason: headache) Qty: 20 0RF sertraline [Zoloft] 100 mg tablet 100 mg PO DAILY Qty: 30 0RF hydroxyzine HCl 10 mg tablet 10 mg PO BEDTIME PRN (Reason: Anxiety) Referrals: [facility] [place] [facility] [Provider Group] Lawrence Verdin MD [Physician] - Print Language: Kyrgyz
[2024-06-30 18:42] VITALS: BP 169/87; PULSE 89; RESP 18; TEMP 36.4; O2SAT 98
[2024-06-30] MEDS: Ketorolac Tromethamine 30 MG/ML VIAL IM (18:45)
[2024-06-30 18:49] VITALS: BP 169/87; PULSE 89; RESP 18; TEMP 36.4; O2SAT 98
--- OUTSIDE RECORDS SUMMARY | 2024-06-30 19:39 | XMS_ITS | Data Portability ---
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 Plan of Treatment Reminders Order Date Submit Date Provider Last Modified By Organization Details Last Modified Time Details Appointments None recorded. Lab rapid strep group A, throat 2022 [address] [email or web address], [address] [place] [address], [phone], 3 09:51:52 Referral None recorded. Procedures None recorded. Surgeries None recorded. Imaging None recorded. Medication Orders cyclobenzap rine 10 mg tablet 2022 023 [email or web address] [facility], [address] [place], [address], 3 09:13:53 penicillin V potassium 500 mg tablet 2022 023 [email or web address] [facility], [address] [place], [address], 3 08:23:03 amoxicillin 875 mg tablet 2021 022 [id number], [address] [place], [address], 3 09:23:27 fluticasone propionate 50 mcg/actuati on nasal spray,suspe nsion 2021 022 [email or web address] [id number], [address] [facility], [place], [address], 08:23:15 Patient TargetsNo targets recorded. Patient Instructions Encounter Date Encounter Id Patient Instructions Last Modified By Organization Details Last Modified Time 04/09/2022 [id number] Acute Sinusitis: Care Instructions [email or web address] Not available 04/09/2022 11:18:46 05/28/2022 [id number] sore throat: car e instructions Not available 05/28/2022 09:51:52 Warm salt gargles: Mix 1 teaspoonful of salt in a glass of warm water. Gargle and spit out the salt water mixture one mouthful at a time until the glass is empty. Repeat 4 times daily. You can also try Cepacol vs Chloraseptic lozenges. Discard your toothbrush after you have been on the antibiotics for 48 hours. Please consult our office promptly if you develop any of the following symptoms: 1. A fever of at least 101? ? ?F or 38.4? ? ?C 2. Throat pain that is severe or does not start to improve within 5 to 7 days Call for an ambulance or go to the emergency room if you: 1. Have trouble breathing 2. Cannot control your saliva (drooling) due to difficulty swallowing 3. Have swelling of the neck or tongue 4. Cannot move your neck or have trouble opening your mouth Not available 05/28/2022 09:57:49 08/28/2022 [id number] headache: care instructions [email or web address] Not available 08/28/2022 08:39:48 Reason for Referral None Reported. Results Created Date Observation Date Name Description Value Unit Range Abnormal Flag Note LastModifiedBy Organization Detail LastModifiedTime 05/28/1905/28/2022 rapid strep group A, throa t Unknown Analyte positi ve Not Available [address] [place], [address], 05/28/2022 09:22:22 05/28/19 23 05/28/2022 rapid strep group A, throa t Unknown Analyte Normal = Negati ve Not Available [address] [address] [facility] [facility], [place], [address], 05/28/2022 09:22:22 Result Notes None recorded. Problems Name Problem SNOMED Code Status Onset Date Resolution Date Notes Provider Name and Address Organization Details Recorded Time Hypertensive disorder 58855118 Active 2021 GIOVANNY NICHOLSON null, [place] - [facility] 2 10:44:47 Anxiety 29807472 Active 2021 GIOVANNY NICHOLSON null, PA - [facility] 2 10:44:54 Problem Notes None recorded. Procedures Surgical History Date Name Laterality Status Provider Name and Address Organization Details Recorded Time 05/17/19 cholecystectomy completed GIOVANNY NICHOLSON PA - [facility] 04/09/2022 10:45:20 Imaging Results None recorded. Procedure Notes None recorded. Medical Equipment None Reported. Allergies No known drug allergies Medications Name Sig Start Date Stop Date Status Note LastModified by Organization Details LastModified Time cyclobenzap rine 10 mg tablet TAKE 1 TABLET BY MOUTH TWICE A DAY FOR 5 DAYS active Not Available Not Available No t Available ibuprofen 800 mg tablet TAKE 1 TABLET BY MOUTH EVERY 8 HOURS FOR 10 DAYS. (WITH FULL MEAL) active Not Available Not Available No t Available meloxicam 15 mg tablet TAKE 1 TABLET BY MOUTH EVERY DAY active Not Available Not Available No t Available sumatriptan 50 mg tablet TAKE 1 TAB BY MOUTH EVERY 2 HOURS NEEDED FOR MIGRAINE HEADACHE DO NOT EXCEED 2 DOSES PER 24 HRS active Not Available Not Available No t Available penicillin V potassium 500 mg tablet TAKE 1 TABLET BY MOUTH TWICE A DAY FOR 10 DAYS 08/28 completed Not Available Not Available Not Available amlodipine 5 mg tablet TAKE 1 TABLET BY MOUTH EVERYDAY AT BEDTIME active Not Available Not Available No t Available acetaminoph en 500 mg tablet TAKE 2 TABLETS BY MOUTH 3 TIMES DAILY NEEDED FOR PAIN. 04/09 completed Not Available Not Available Not Available amoxicillin 875 mg tablet TAKE 1 TABLET BY MOUTH EVERY 12 HOURS WITH MEALS FOR 7 DAYS 05/28 completed Not Available Not Available Not Available norethindro ne (contracept juanjo) 0.35 mg tablet TAKE 1 TABLET BY MOUTH EVERY DAY active Not Available Not Available No t Available hydroxyzine HCl 10 mg tablet TAKE 1 TABLET BY MOUTH 3 TIMES DAILY NEEDED FOR ANXIETY FOR UP TO 30 DAYS. active Not Available Not Available No t Available fluticasone propionate 50 mcg/actuati on nasal spray,suspe nsion SPRAY 1 SPRAY NASALLY TWICE DAILY DIRECTED 08/28 completed Not Available Not Available Not Available oxycodone 5 mg tablet TAKE 1 TABLET BY MOUTH EVERY 4 HOURS NEEDED FOR PAIN 04/09 completed Not Available Not Available Not Available meloxicam active Not Available Not Dinora ilable Not Available Vitals Date Recorded Body height Body mass index (BMI) Body weight Respiratory rate Body temperature Heart rate Oxygen saturation Oxygen saturation in Arterial blood by Pulse oximetry Pain severity - 0-10 verbal numeric rating [Score] - Reported Systolic blood pressure Diastolic blood pressure Provider Name and Address Organization Details Last Updated DateTime 2 157.48 cm 52.3 kg/m2 705785. 42 g 18 /min 97.9 [degF] 77 /min 98 % 98 % 4 155 mm[Hg] 86 mm[Hg] GIOVANNY NICHOLSON PA - [facility] 2 10:44:00 Date Recorded Body height Body mass index (BMI) Body weight Oxygen saturation Oxygen saturation in Arterial blood by Pulse oximetry Pain severity - 0-10 verbal numeric rating [Score] - Reported Heart rate Respiratory rate Body temperature Systolic blood pressure Diastolic blood pressure Provider Name and Address Organization Details Last Updated DateTime 3 157.48 cm 52.3 kg/m2 655235. 42 g 98 % 98 % 5 88 /min 20 /min 97.8 [degF] 160 mm[Hg] 92 mm[Hg] Carrie Shore PA - [facility] 3 08:24:58 Date Recorded Body height Body mass index (BMI) Body weight Body temperature Oxygen saturation Oxygen saturation in Arterial blood by Pulse oximetry Heart rate Respiratory rate Systolic blood pressure Diastolic blood pressure Provider Name and Address Organization Details Last Updated DateTime 3 157.48 cm 52.3 kg/m2 812707. 42 g 97.1 [degF] 98 % 98 % 101 /min 16 /min 131 mm[Hg] 84 mm[Hg] MACKENZIE LUPICA PA - [facility] 3 09:25:37 Social History Question Answer Notes LastModified by Organizat ion Details LastModified Time Tobacco Smoking Status Never Smoker GIOVANNY COR[facility] Richey - [facility] 04/09/2022 10:45:36 What Is Your Level Of Alcohol Consumption? None [email or web address] Information not available 04/09/2022 Are You Currently Employed? Yes [email or web address] Information not available 04/09/2022 What Is The Highest Grade Or Level Of School You Have Completed Or The Highest Degree You Have Received? [id number] Information not available 04/09/2022 What Is Your Water Source? City Information not available 04/09/2022 What Is Your Heat Source? Electric Information not available 04/09/2022 Have You Had Direct Contact, Or Contact During Intimacy, With Monkeypox Rash, Scabs, Or Body Fluids From A Person With Monkeypox? No Information not available 04/09/2022 What Is Your Relationship Status? Unknown [email or web address] Information not available 04/09/2022 Do You Use Any Illicit Or Recreational Drugs? No Information not available 04/09/2022 Have You Recently Traveled Abroad? No [email or web address] Information no t available 04/09/2022 Are You Currently In School? Yes Information not available 04/09/2022 Do You Or Have You Ever Used Any Other Forms Of Tobacco Or Nicotine? No [email or web address] Information not available 04/09/2022 Sex: Unknown Functional Status None recorded. Mental Status None recorded. Family History Relationship Description Onset Age of this Age Resolved Age Notes LastModified by Organization Details LastModified Time Father No current problems or disability [email or web address] Not available 04/09/2022 10:44:58 Mother No current problems or disability [email or web address] Not available 04/09/2022 10:44:58 Medical History No medical history recorded. Gynecological HistoryNo gynecological history recorded. Obstetrics History GPAL:G 0 P 0 0 0 0 Immunizations Vaccine Type Date Status Note Provider Nam e and Address Organization Details Recorded Time Influenza, split virus, quadrivalent, PF 07/09/2019 completed GIOVANNYRONNY NICHOLSON null, PA - [facility] 04/09/2022 10:44:13 Influenza, split virus, quadrivalent, PF 01/07/2020 completed GIOVANNYRONNY KHAN NICHOLSON null, PA - [facility] 04/09/2022 10:44:13 COVID-19, mRNA, LNP-S, PF, 30 mcg/0.3 mL dose 11/16/2020 completed GIOVANNY MARTINQUEZ null, PA - [facility] 04/09/2022 10:44:13 Past Encounters Encounter ID Performer Location Encounter Start Date Encounter Closed Date Diagnosis/Indication Diagnosis SNOMED-CT Code Diagnosis ICD10 Code Diagnosis Note [id number] [facility] [address] [place] [phone] 11/01/2018 17:49:06 11/01/2018 19:19:29 [id number] [facility] [address] [place] [phone] 10/09/2018 13:48:40 10/09/2018 14:48:42 [id number] ANN GRANADOS MD [facility] [address] [place] [id number] 04/09/2022 08:21:12 04/09/2022 11:20:26 Acute sinusitis 18617700 J01.90 If you are having thick mucus, you can useMUCINEX PLAINto help with your symptoms. Mucinex helps to thin mucus and works best when you drink plenty of water/flui ds throughout the whole day. If you are having thick mucus and a cough, you can useMUCINEX -DMto help with your symptoms. Mucinex helps to thin mucus and the DM is the cough suppressan t. This will work best when you drink plenty of water/flui ds throughout the whole day. If you just have coughand not thick mucus, you can useDELSYMt o help with your symptoms. Some people feel DELSYM makes them feel a little tired so you may want to use cough drops during the day and add the DELSYM in at night. Drink plenty of fluids If your symptoms worsen or persist you should be re-evaluat ed. Return to [facility] or see your primary care physician if your symptoms fail to improve in 5-7 days. You should follow up sooner if your symptoms worsen significan tly or if you develop new symptoms that concern you. [id number] Sina Lux DO [facility] [address] [place] [id number] 05/28/2022 08:09:34 05/28/2022 10:03:24 Sore throat 925239668 J02.9 Streptococ estefania sore throat 97777251 J02.0 [id number] Placido Garcia [place] [facility] [address] [place] [phone] 08/28/2022 08:11:15 08/28/2022 08:45:43 Cervicogenic headache 602272904 G44.86 Muscular pain right side neck, likely cervicogen ic headacheCo ntinue with heat and Ibuprofen 600mg every 6 hours with food. Health Concerns Section Related Observation LastModified by Organization Detai ls LastModified Time None Recorded Concern Status LastModified by Organization Details LastModified Time None Recorded Advance Directives Directive None Recorded Payers Encounter Date Sequence Insurance Name Policy Number Policy Flores Covered Member ID Flores Member ID Guarantor Name 10/09/2018 1 [facility] (MEDICAID REPLACEMENT - HMO) [employer] Glorisel A Mcqueen [id number] Glorisel Sabina Mcqueen 11/01/2018 1 [facility] (MEDICAID REPLACEMENT - HMO) [employer] Glorisel A Mcqueen [id number] Glorisel Sabina Mcqueen 04/09/2022 1 [facility] (MEDICAID REPLACEMENT - HMO) [employer] Glorisel A Mcqueen [id number] Glorisel Sabina Mcqueen 05/28/2022 1 [facility] (MEDICAID REPLACEMENT - HMO) [employer] Glorisel A Mcqueen [id number] Glorisel Sabina Mcqueen 08/28/2022 1 [facility] (MEDICAID REPLACEMENT - HMO) HALLIE Mcqueen [id number] Davy Mcqueen Notes Date Note Type Note Provider Name and Address Organization Details Recorded Time 04/09/2022 text/html CoughReported bypatient.Quality:h erika;dry; symptoms worse with lying down Severity:improving Duration:constant; 8 days Timing:constant Associated Symptoms:cold sweats started beginning of last week with congestion, cough, a little achy, bad fatigue. Tried OTC but not much help. Home COVID test yest neg ANN GRANADOS MD [address] [place], [address], [place] - [facility] 04/09/2022 11:20:40 05/28/2022 text/html Symptoms since t his AM: sore throat, painful swallowing, cough = throat clearing. Feels feverish and tired. Teaches preK. Sina Lux DO [address] [place], [address], [place] - [facility] 05/28/2022 10:01:00 08/28/2022 text/html Headache UCRepor yannick bypatient.Notes:Nec k pain since Friday. Started after coughing. pain is worse when moves her head. NO aura. ER did CT scan, EKG due to high BP, and Labs. Said it was Migraine but Sumatriptan not helping. 07/05 headache persistent. Placido Garcia MD [address] [place], [address], [place] - [facility] 08/28/2022 09:16:36 OBGyn Episode No OBEpisode recorded.
== END 2024-06-30 18:53 | disposition home or self-care (01) ==
PROVIDERS: Emergency Provider Emergency Medicine
DX: S93.401A Sprain of unspecified ligament of right ankle, initial encounter (principal); M25.571 Pain in right ankle and joints of right foot; I10 Essential (primary) hypertension; M72.2 Plantar fascial fibromatosis; X58.XXXA Exposure to other specified factors, initial encounter; Y93.9 Activity, unspecified; Y92.9 Unspecified place or not applicable; Y99.9 Unspecified external cause status
CPT/HCPCS: 73610; 73630; 96372; 99283; 99284; J1885

== ENCOUNTER → 2024-06-30 17:08 | Outpatient (BNV) | payer OTHER, SELFPAY | PROVIDERS: Emergency Provider Emergency Medicine; Visit Provider Radiology Diagnostic Radiology | DX: M25.571 Pain in right ankle and joints of right foot (principal); M79.671 Pain in right foot | CPT/HCPCS: 73610; 73630 ==

== ENCOUNTER 2024-09-15 16:31 | Emergency (ER) | payer OTHER, SELFPAY ==
--- NOTE | ~2024-09-15 | XR_ITS ---
CLINICAL HISTORY: 5th toe foot pain 3 view right foot Comparison: CR - XR FOOT RT MIN 3V - 06/30/24 17:38 EST Findings: Bones intact. No dislocations. No significant arthritic change or erosions. No ankle effusion. No radiopaque foreign body. IMPRESSION: 1. No acute findings. This document has been electronically signed by: Grayson Alvarado MD on 09/15/2024 18:54:29
[2024-09-15 16:44] VITALS: BP 181/84; PULSE 93; RESP 16; TEMP 36.5; O2SAT 100; BMI 52.7
--- NOTE | 2024-09-15 16:44 | ED_ITS ---
HPI - Extremity Injury (Lower) General Chief Complaint: Extremity Injury, Lower Stated Complaint: R Pinky Toe Injury/ Pain, Numbness Time Seen by Provider: 09/15/24 17:46 Source: patient, RN notes reviewed and old records reviewed Mode of arrival: ambulatory Limitations: no limitations History of Present Illness ED Provider: Jair HPI Narrative: Patient is a 38-year-old female with history of obesity, status post cholecystectomy, hypertension presenting to the emergency department with complaint of right 5th toe pain and numbness since August 29. States her mother was and she was on her feet for over 12 hours that day. Started with pain only, then progress to decrease sensation to 5th toe as well as lateral aspect of foot. She denies back pain or any pain to her right leg. Denies saddle anesthesia or bowel or bladder incontinence. Denies any known injury or trauma to the area. Related Data Home Medications ?Medication ?Instructions ?Recorded ?Confirmed hydroxyzine HCl 10 mg tablet 10 mg PO BEDTIME PRN Anxiety 02/09/21 05/21/21 amlodipine 5 mg tablet 1 tab PO DAILY 05/21/21 05/21/21 norethindrone (contraceptive) 0.35 1 tab PO DAILY 05/21/21 05/21/21 mg tablet Previous Rx's ?Medication ?Instructions ?Recorded oxycodone 5 mg tablet 5 mg PO Q4H PRN pain (scale score 05/22/21 7-10) #24 tabs iytjcobbhy-huuihsqlplmzo-tbxwrmle 1 cap PO Q6H PRN headache #20 caps 08/26/22 50 mg-300 mg-40 mg capsule (Fioricet) sumatriptan succinate 50 mg tablet 50 mg PO Q2H PRN migraine headache 08/26/22 (Imitrex) #10 tabs sertraline 100 mg tablet (Zoloft) 100 mg PO DAILY #30 tabs 03/18/24 acetaminophen 500 mg tablet 500 mg PO Q6H PRN fever or pain 06/30/24 (Tylenol Extra Strength) #14 tabs naproxen 500 mg tablet 500 mg PO BID PRN pain 10 days #20 06/30/24 tabs prednisone 10 mg tablet See Rx Instructions .Route 09/15/24 .COMPLEX #15 tabs Allergies Allergy/AdvReac Type Severity Reaction Status Date / Time No Known Allergies Allergy Verified 09/15/24 16:46 Review of Systems Review of Systems: As per HPI Yes all other systems are reviewed and are negative Constitutional: Constitutional: Reports as per HPI [facility] Past Medical History Medical History Morbid obesity Hypertension Surgical History History of laparoscopic cholecystectomy History of salpingectomy Social History Social History Household Members: Family Housing: Apartment Do you presently have visiting nurse or other home services: No Alcohol intake: current Alcohol intake frequency: holidays/special occasions only Alcohol type: wine Patient Tobacco Use Status: Never used Tobacco Smoked in Last 30 Days: No Substance Use Type: Other Substance Use Type Other:: edibles Advance Directives: No Advance Directives Information Provided: Yes Do you have a plan to hurt others: No Plan service: No Current occupational status: unemployed Physical Exam Vital Signs: Vital Signs: Last Vital Signs Temp 97.9 F 09/15/24 18:47 Pulse 92 09/15/24 18:47 Resp 16 09/15/24 18:47 BP 152/81 H 09/15/24 18:47 Pulse Ox 97 09/15/24 18:47 O2 Del Method Room Air 09/15/24 18:47 BMI result Body Mass Index 52.7 Vital signs have been reviewed and appear to be correct. Blood pressure normal. Heart rate normal. Respiratory rate normal. Temperature normal. Oxygen saturation normal. Const: General: cooperative, healthy appearing and no acute distress Orientation/consciousness: oriented to person, oriented to place, oriented to time and patient oriented x3 Limitations: no limitations HEENT: Head: Yes normocephalic and Yes atraumatic Ears: external ears normal General nose exam: Normal external nose present Face and sinus: Yes face symmetric Mouth: oropharynx normal and moist mucous membranes Throat: Yes uvula midline Eyes: Pupils: Equal, round and reactive pupils present Neck: Neck: Yes normal visual inspection and Yes supple Resp: Effort & Inspection: normal respiratory effort and able to speak in comp lete sentences Auscultation: clear to auscultation bilaterally Cardio: Rate: regular rate Rhythm: regular rhythm Heart sounds: S1 normal heart sound present and S2 normal heart sound present GI: Palpation (GI): Soft to palpation and nontender Auscultation: normoactive bowel sounds : General: Yes no CVA tenderness Back/Spine/Pelvis: Back: no CVA tenderness Thoracic/Lumbar Spine: thoracic and lumbar spine normal to inspection, thoraco-lumbar ROM normal, straight leg raise negative bilaterally, No pain with thoraco-lumbar ROM, No thoracic spinal tenderness and No lumbar spinal tenderness Skin: General skin exam: elasticity normal and turgor normal Neuro: General: oriented to person, oriented to place, oriented to time, patient oriented x3, moves all extremities, no focal motor deficits and CN's II- XI intact bilaterally Cranial nerves: Yes Equal, round and reactive pupils present Cognition (Neuro): normal cognition Motor exam (neuro): 5/5 motor strength present throughout Sensory Exam: Abnormal lower extremity sensory e xam right light-touch abnormal (right 5th phalanx, lateral aspect and distal lateral third of right foot with decreased sensation) Extrem: General: Yes full ROM, Yes no pedal edema and Yes no calf tenderness Right lower extremity: foot Details: normal capillary refill, normal to inspection, tenderness Location: of another digit Location: the 5th digit, toes with normal ROM, no edema, vascular exam Details: dorsalis pedis pulse present, posterior tibial pulse present and normal capillary refill and motor-sensory ex am (decreased sensation lateral aspect of 5th toe and distal lateral third of foot); no unusual warmth Psych: Mental Status: mental status grossly normal Affect: normal affect Thought process: Normal thought process present Course Course Course Narrative: This is a Rapid Medical Exam performed in triage by Shivani Barton PA-C. Full HPI, ROS and PE to be performed by primary ED provider. 38 yoF w/PMHx obesity, HTN presenting to the ED c/o R foot pinky toe pain/numbness/tingling x 2 days. denies injury/fall PE: Right 5th toe with mild swelling. Reproducible tenderness. No deformity/erythema. Neurovascularly intact Plan: XR Medical Decision Making Medical Decision Making MDM Narrative: Patient is a 38-year-old female with history of obesity, status post cholecystectomy, hypertension presenting to the emergency department with complaint of right 5th toe pain and numbness since August 29. On exam patient is awake, A+Ox3, VS WNL, afebrile, normal neurological exam without focal deficits, physical exam findings as above. Given reported symptoms and physical exam findings, initial differential includes but is not limited to strain, sprain, lumbar radiculopathy. Less likely fracture as patient denies trauma. X-ray notable for no acute fracture. My interpretation is in agreement with the radiologist's interpretation. Feel symptoms likely due to lumbar radiculopathy. Will treat with course of prednisone. Advised follow up with PCP, return precautions discussed. Patient verbalized understanding of and agreement with plan. Differential Diagnosis Differential Diagnoses: The differential diagnosis associated with the presentation includes as per [facility] Admission/Observation Consideration of admission/observation: Escalation of care including admission/observation considered Patient would have been admitted to the hospital had their work up had any findings where hospital admission was appropriate and their clinical presentati on warranted hospital admission. Independent Interpretation I performed an independent interpretation of an: Plain X-Ray Interpretation: No acute right 5th toe fracture on x-ray. Radiology Impression Discussion of test interpretation with radiology: I have reviewed the radiologist's reading. Radiologist Impression: CLINICAL HISTORY: 5th toe foot pain 3 view right foot Comparison: CR - XR FOOT RT MIN 3V - 06/30/24 17:38 EST Findings: Bones intact. No dislocations. No significant arthritic change or erosions. No ankle effusion. No radiopaque foreign body. IMPRESSION: 1. No acute findings. External Record Review External record reviewed: Inpatient record, Office record and Outpatient record Prescription Management I considered prescription management with: Other Discharge Plan Discharge Clinical Impression: Pain in toe of right foot Patient Disposition: Home, Self-Care Instructions: Lumbar Radiculopathy (ED) Additional Instructions: You were evaluated in the emergency department today for right toe and foot pain and numbness. Your x-ray did not show evidence of a fracture. You being treated with a course of prednisone to decrease inflammation. We also recommend that you follow-up with your primary care provider. Return to the emergency department with new or concerning symptoms. Prescriptions: New prednisone 10 mg tablet See Rx Instructions .ROUTE .COMPLEX Qty: 15 0RF Rx Instructions: 50mg (5 tabs) x1 day, then 40 mg (4 tabs) x1 day, then 30 mg (3 tabs) x1 day, then 20 mg (2 tabs) times 1 day, then 10 mg (1 tab) x1 day No Action amlodipine 5 mg tablet 1 tab PO DAILY norethindrone (contraceptive) 0.35 mg tablet 1 tab PO DAILY oxycodone 5 mg tablet 5 mg PO Q4H PRN (Reason: pain (scale score 7-10)) Qty: 24 0RF sumatriptan succinate [Imitrex] 50 mg tablet 50 mg PO Q2H PRN (Reason: migraine headache) Qty: 10 0RF Rx Instructions: do not exceed 2 doses per 24 hrs [id number]-ddkaowfuiigzi-twqj [Fioricet] 50-300-40 mg capsule 1 cap PO Q6H PRN (Reason: headache) Qty: 20 0RF sertraline [Zoloft] 100 mg tablet 100 mg PO DAILY Qty: 30 0RF acetaminophen [Tylenol Extra Strength] 500 mg tablet 500 mg PO Q6H PRN (Reason: fever or pain) Qty: 14 0RF naproxen 500 mg tablet 500 mg PO BID PRN (Reason: pain) 10 Days Qty: 20 0RF hydroxyzine HCl 10 mg tablet 10 mg PO BEDTIME PRN (Reason: Anxiety) Stand Alone Forms: Work/School Release Interventions: ED Discharge Assessment Last Done: 09/15/24 18:47 Discharge Date/Time: 09/15/24 18:49 Print Language: Serbian
[2024-09-15 17:52] VITALS: BP 152/81; PULSE 92; RESP 16; TEMP 36.6; O2SAT 97
[2024-09-15 18:47] VITALS: BP 152/81; PULSE 92; RESP 16; TEMP 36.6; O2SAT 97
== END 2024-09-15 18:49 | disposition home or self-care (01) ==
PROVIDERS: Emergency Provider Emergency Medicine; PCP Internal Medicine
DX: M79.671 Pain in right foot (principal); Z79.899 Other long term (current) drug therapy
CPT/HCPCS: 73630; 99283; 99284

== ENCOUNTER → 2024-09-15 16:47 | Outpatient (BNV) | payer OTHER, SELFPAY | PROVIDERS: Emergency Provider Emergency Medicine; PCP Internal Medicine; Visit Provider Radiology Diagnostic Radiology | DX: M79.671 Pain in right foot (principal) | CPT/HCPCS: 73630 ==